=== PATIENT | female | born 1945 | race Caucasian/White ===

== ENCOUNTER 2024-04-28 09:28 | Outpatient (REF) | payer MEDICARE, SELFPAY | END 2024-04-28 09:29 | disposition home or self-care (01) | LOC: HO.HOSX 09:28 | PROVIDERS: Visit Provider Orthopaedic Surgery | DX: M25.562 Pain in left knee (principal); M25.561 Pain in right knee; M17.0 Bilateral primary osteoarthritis of knee | CPT/HCPCS: 20610; 73562; J1010; J2003 ==

== ENCOUNTER 2024-04-28 13:32 | Outpatient (AMB) | payer OTHER, SELFPAY ==
--- NOTE | 2024-04-28 13:51 | MHC.OFFVIS ---
Intake Visit Reasons: Bilateral knee pain Intake Note: Jazmin is a 79 year old female who presents with complaints of progressively worsening bilateral knee pains. She describes her pains as sharp in nature. Her pains have gotten worse over the last year in spite of continued non operative treatments. She has had cortisone injections in the past which gave her fairly good relief. She has done physical therapy exercises which aggravated her pain. She has tried Tylenol and anti-inflammatory medicines which gave her minimal relief. She would like to hold off on total knee replacement surgery for as long as possible. Allergies hydrochlorothiazide [From Zestoretic] Allergy (Intermediate, Verified 04/28/24 14:13) Redness of Skin lisinopril [From Zestoretic] Allergy (Intermediate, Verified 04/28/24 14:13) Redness of Skin warfarin Allergy (Verified 04/28/24 14:13) Rash Medication List - Last Reconciled 04/29/24 by Candido Sanchez MD amitriptyline 25 mg PO BEDTIME clonazepam 0.5 mg PO DAILY diclofenac sodium 1% 4 grams topical QID digoxin 125 mcg PO DAILY diltiazem HCl ER 180 mg PO DAILY fluticasone propionate 250 mcg/actuation 1 inh inhalation BID ibuprofen 200 mg PO Q6H PRN Physical Exam Const Other: Well-nourished well-developed very friendly female awake alert and oriented x3 in no acute distress Extrem Other: Bilateral lower extremity examination shows good capillary refill, no skin lesions noted, normal sensation light touch Bilateral knee examination shows minimal effusions, palpable crepitus with range of motion, pain with range of motion, no instability Office Procedures AMB Joint Injection/Aspiration Joint Injection/Aspiration Primary Site: left knee Prep: site was prepped using aseptic technique Injected: 40 mg of, DepoMedrol and 1% plain lidocaine Procedure: The patient tolerated the procedure well Coding 71334 - Large joint Procedure code (CPT) selection complete AMB Joint Injection/Aspiration Joint Injection/Aspiration Primary Site: right knee Prep: site was prepped using aseptic technique Injected: 40 mg of, DepoMedrol and 1% plain lidocaine Procedure: The patient tolerated the procedure well Coding 72841 - Large joint Procedure code (CPT) selection complete Results Reviewed Results Reviewed: X-rays of the patient's bilateral knee show joint space narrowing, subchondral sclerosis, no acute bony abnormalities Assessment & Plan Assessment & Plan (1) Arthritis of right knee: Code(s): M17.11 - Unilateral primary osteoarthritis, right knee Category: Medical (2) Pain in both knees: Code(s): M25.561 - Pain in right knee; M25.562 - Pain in left knee Plan Ms. Adair presents with bilateral knee pains due to degenerative joint disease. I had a lengthy discussion with the patient regarding the treatment options. The risks and benefits of bilateral knee cortisone injections were discussed at length with the patient. The patient wished to proceed. She tolerated the injections well. She will continue with her home exercise program. She will contact me prior to her follow-up appointment in 3 months should any questions or concerns arise. I spent 22 minutes in reviewing the patient's records and imaging studies, seeing the patient and documenting in the medical record. Orders: Orders AMB Joint Injection/Aspiration 04/28/24 M17.11 - Unilateral primary osteoarthritis, right knee XR knee LT 3V 04/28/24 M25.562 - Pain in left knee XR knee RT 3V 04/28/24 M25.561 - Pain in right knee AMB Joint Injection/Aspiration 04/28/24 M17.12 - Unilateral primary osteoarthritis, left knee Coding Level of Care Code Est Pt Level 3 (07865) Complex EM visit Add On G2211 Diagnoses Arthritis of right knee M17.11 Pain in both knees M25.561; M25.562 CPT Codes Coding - 64075 Large joint: 62995 - Large joint ([id number]) Coding - 92103 Large joint: 85913 - Large joint ([id number])
== END 2024-04-28 14:29 | disposition home or self-care (01) ==
LOC: HO.HOS 13:33
PROVIDERS: Visit Provider Orthopaedic Surgery
DX: M17.0 Bilateral primary osteoarthritis of knee (principal)
CPT/HCPCS: 20610; 99213

== ENCOUNTER 2024-08-31 11:12 | Outpatient (AMB) | payer MEDICARE, SELFPAY ==
--- NOTE | 2024-08-31 11:16 | A.OFFVIS_ITS ---
Vital Signs 08/31/24 11:21 Height 5 ft 3 in Weight 210 lb BMI 37.2 Intake Visit Reasons: Bilateral knee pains and swelling Intake Note: Jazmin is a 79 year old female who presents with complaints of bilateral knee pains and swelling. She describes her pains as sharp in nature. She has tried Tylenol and anti-inflammatory medicines which gave her minimal relief. She w ishes to hold off on total knee replacement surgery for as long as possible. She has had cortisone injections in the past which gave her fairly good relief. She has done physical therapy exercises which aggravated her pain. Allergies hydrochlorothiazide [From Zestoretic] Allergy (Intermediate, Verified 08/31/24 11:16) Redness of Skin lisinopril [From Zestoretic] Allergy (Intermediate, Verified 08/31/24 11:16) Redness of Skin warfarin Allergy (Verified 08/31/24 11:16) Rash Medication List - Last Reconciled 08/31/24 by Candido Sanchez MD amitriptyline 25 mg PO BEDTIME clonazepam 0.5 mg PO DAILY diclofenac sodium 1% 4 grams topical QID digoxin 125 mcg PO DAILY diltiazem HCl ER 180 mg PO DAILY fluticasone propionate 250 mcg/actuation 1 inh inhalation BID ibuprofen 200 mg PO Q6H PRN Physical Exam Vital Signs: BMI result Body Mass Index 37.2 Const Other: Well-nourished well-developed very friendly female awake alert and oriented x3 in no acute distress Extrem Other: Bilateral lower extremity examination shows good capillary refill, no skin lesions noted, normal sensation light touch Bilateral knee examination shows moderate effusions, palpable crepitus with ran ge of motion, pain with range of motion, no instability Office Procedures AMB Joint Injection/Aspiration Joint Injection/Aspiration Primary Site: left knee Prep: site was prepped using aseptic technique Injected: 40 mg of, DepoMedrol and 1% plain lidocaine Procedure: The patient tolerated the procedure well Coding 23505 - Large joint Procedure code (CPT) selection complete AMB Joint Injection/Aspiration Joint Injection/Aspiration Primary Site: right knee Prep: site was prepped using aseptic technique Injected: 40 mg of, DepoMedrol and 1% plain lidocaine Procedure: The patient tolerated the procedure well Coding 58563 - Large joint Procedure code (CPT) selection complete Results Reviewed Results Reviewed: X-rays of the patient's bilateral knees taken previously show joint space narrowing, subchondral sclerosis, no acute bony abnormalities Assessment & Plan Assessment & Plan (1) Arthritis of left knee: Code(s): M17.12 - Unilateral primary osteoarthritis, left knee Category: Medical (2) Arthritis of right knee: Code(s): M17.11 - Unilateral primary osteoarthritis, right knee Category: Medical Plan Ms. Adair presents with bilateral knee pains due to degenerative joint disease. The risks and benefits of bilateral knee cortisone injections were discussed at length with the patient. The patient wished to proceed. She tolerated the injections well. She will continue with her home exercise program. She will contact me prior to her follow-up appointment in 3 months should any questions or concerns arise. I spent 21 minutes in reviewing the patient's records and imaging studies, seeing the patient and documenting in the medical record. Orders: Orders AMB Joint Injection/Aspiration Today M17.12 - Unilateral primary osteoarthritis, left knee AMB Joint Injection/Aspiration Today M17.11 - Unilateral primary osteoarthritis, right knee Coding Level of Care Code Est Pt Level 3 (54572) Complex EM visit Add On G2211 Diagnoses Arthritis of left knee M17.12 Arthritis of right knee M17.11 CPT Codes Coding - 34816 Large joint: 85208 - Large joint ([id number]) Coding - 97244 Large joint: 52202 - Large joint ([id number])
[2024-08-31 11:21] VITALS: BMI 37.2
--- OUTSIDE RECORDS SUMMARY | 2024-08-31 13:54 | XMS_ITS | Clinical Summary ---
Author Organization [employer] [facility] it Address [address] [place] [address] Care Team Providers Care Maxillofacial Pathology Name Role Phone Dany Galloway MD Primary Care Provider [phone] Medications triamterene-hyd roCHLOROthiazid e (MAXZIDE) 75-50 mg per tablet Take 1 tablet by mouth 1 (one) time each day. 7 Active apixaban (ELIQUIS) 5 mg tablet Take 1 tablet (5 mg total) by mouth 2 (two) times a day. 180 tablet 1 4 Active digoxin (LANOXIN) 125 mcg (0.125 mg) tablet Take 1 tablet (125 mcg total) by mouth 1 (one) time each day. 90 tablet 1 5 Active dilTIAZem CD (CARDIZEM CD) 180 mg 24 hr capsule Take 2 capsules (360 mg total) by mouth 1 (one) time each day. 180 capsule 1 5 Active digoxin (LANOXIN) 125 mcg (0.125 mg) tablet Take 1 tablet (125 mcg total) by mouth 1 (one) time each day. 7 08/02/19 25 Discontinu ed(Reorder ) dilTIAZem CD (CARDIZEM CD) 180 mg 24 hr capsule Take 2 capsules (360 mg total) by mouth 1 (one) time each day. 08/02/19 25 Discontinu ed(Reorder ) Encounters Date Type Department Care Team Description 08/02/2024 Telephone [facility] [address] [place] [address] Rafa Mcgrath MD Med Refill from Last 3 Months Family History Medical History Relation Name Comments Other: pacemaker Father Relation Name Status Comments Father Social History Tobacco Use Types Packs/Day Years Used Date Smoking Tobacco: Never Smokeless Tobacco: Never Alcohol Use Standard Drinks/Week Comments Yes 0 (1 standard drink = 0.6 oz pur e alcohol) Comments Unknown Sex and Gender Information Value Date Recorded Sex Assigned at Not on file Legal Sex Female 10:34 AM EST Gender Identity Not on file Sexual Orientation Not on file Obstetrics History Last Filed Vital Signs Vital Sign Reading Time Taken Comments Blood Pressure 140/85 03/24/2024 11:13 AM EDT Si tting L Arm Pulse 75 01/02/2024 1:36 PM EDT Temperature - - Respiratory Rate - - Oxygen Saturation - - Inhaled Oxygen Concentration - - Weight 107 kg (235 lb) 03/24/2024 11:13 AM EDT Height 160 cm (5' 3 ) 03/24/2024 11:13 AM EDT Body Mass Index 41.63 03/24/2024 11:13 AM EDT Plan of Treatment Health Maintenance Due Date Last Done Comments DTaP,Tdap,and Td Vaccines (1 - Tdap) 1964 Pneumococcal Vaccine: 50+ Years (1 of 2 - PCV) 1965 Zoster Vaccines (1 of 2) 02/29/1996 RSV Immunization Patients 60 + Years Old (1 - 1-dose 75+ series) 2021 Cholesterol Screening (Lipid Panel) 05/30/2022 Depression Screening 05/30/2022 Falls Risk Assessment 05/30/2022 Hepatitis C Screening 05/30/2022 Osteoporosis Screening (Bone Density Screening) 05/30/2022 Social Influencers of Health Screening 05/30/2022 COVID-19 Vaccine ( - 2023-2 5 season) 2024 Influenza Vaccine (#1) 2024 3, 04/05/2022, 03/21/2021 Hypertension/CHF/CAD Annual BMP Blood Test 04/28/2024 HIB Vaccines Aged Out No longer eligi ble based on patient's age to complete this topic HPV Vaccines Aged Out No longer eligi ble based on patient's age to complete this topic Hepatitis A Vaccines Aged Out No long er eligible based on patient's age to complete this topic Hepatitis B Vaccines Aged Out No long er eligible based on patient's age to complete this topic IPV Vaccines Aged Out No longer eligi ble based on patient's age to complete this topic MMR Vaccines Aged Out No longer eligi ble based on patient's age to complete this topic Meningococcal ACWY Vaccine Aged Out N o longer eligible based on patient's age to complete this topic Meningococcal B Vacine Aged Out No lo nger eligible based on patient's age to complete this topic RSV Immunization Patients Under 20 months Aged Out No longer eligible b ased on patient's age to complete this topic Varicella Vaccines Aged Out No longer eligible based on patient's age to complete this topic Care Teams Maxillofacial Pathology Relationship Specialty Start Date End Date Dany Galloway MD [address] [place] [id number] PCP - General Oil Seal Assembler 04/04/17
--- OUTSIDE RECORDS SUMMARY | 2024-08-31 13:54 | XMS_ITS | Data Portability ---
Author Organization [place] [facility] Rodas AONE [place] Address [address] [place] [address] Care Team Providers Care Field Service Specialist Name Role Phone ALAN ZARAGOZA Primary Care Provider Assessment Encounter Date Assessment Date Assessment LastModified by Organization Details LastModified Time 11/20/2022 11/20/2022 77-year-old fema le with severe arthritis/joint effusion of both knees who states she is not interested in knee replacement surgery. She gets good relief with aspiration followed by cortisone injections for which she opted for at today's visit. After verbal consent was granted by the patient. The procedures were carried out. The patient tolerated the procedures well. Aftercare instructions were discussed in detail. Regarding her tube plus pitting edema on her mid shins. She states supposed to take my water pill however I do not . She also does admit she is supposed to be on anticoagulation for atrial fibrillation however she states she discontinued this on her own. We did discuss the risks of heart attack stroke and . She should follow-up with her primary care making them aware of her noncompliance of her medications. Follow-up visit regarding her knees in 3 months. She was discharged in stable condition. Indirect care and treatment in conjunction with Dr. Mccray Additional treatment plan discussed with the patient in detail included the following; - Provider focused nonsteroidal anti-inflammatory regimen (discussed were the pros, cons, benefits and risks as well as any black box warnings) in patients over 60 years old they should be very cautious in taking these medications due to potential decreased kidney function and or elevated blood pressure. - Analgesic pain medication for pain suppression (discussed were the pros, cons, benefits and risks as well as any black box warnings) - The use of topical pain relieving medication were discussed - The use of ice to decrease inflammation and pain - The use of assistive ambulatory devices for ambulation and fall prevention - Formal specific guided physical therapy program I reviewed my findings at length with the patient today. ? ? ?We discussed the nature and etiology of this problem along with current treatment options. We discussed the expected course and outcomes and what to expect. We also discussed risks and benefits. ? ? ? All of their questions were answered today, and there was exhibited understanding and comprehension of all that was discussed. Time Spent: 10 minutes were spent reviewing previous imaging and charting. ? ? ?15 minutes were spent obtaining patient history. ? ? ?5 minutes were spent on physical exam. ? ? ?15? ? ?minutes were spent explaining diagnosis and assessment. Today's documentation was made using voice recognition software. This note may contain grammatical errors secondary to the software. Not available 11/21/2022 07:47:32 02/04/2023 02/04/2023 77-year-old fema le with severe arthritis/joint effusion of both knees who states she is not interested in knee replacement surgery. She gets good relief with aspiration followed by cortisone injections for which she opted for at today's visit. After verbal consent was granted by the patient. The procedures were carried out. The patient tolerated the procedures well. Aftercare instructions were discussed in detail. Follow-up visit regarding her knees in 3 months. She was discharged in stable condition. Indirect care and treatment in conjunction with Dr. Mccray Additional treatment plan discussed with the patient in detail included the following; - Provider focused nonsteroidal anti-inflammatory regimen (discussed were the pros, cons, benefits and risks as well as any black box warnings) in patients over 60 years old they should be very cautious in taking these medications due to potential decreased kidney function and or elevated blood pressure. - Analgesic pain medication for pain suppression (discussed were the pros, cons, benefits and risks as well as any black box warnings) - The use of topical pain relieving medication were discussed - The use of ice to decrease inflammation and pain - The use of assistive ambulatory devices for ambulation and fall prevention - Formal specific guided physical therapy program I reviewed my findings at length with the patient today. ? ? ?We discussed the nature and etiology of this problem along with current treatment options. We discussed the expected course and outcomes and what to expect. We also discussed risks and benefits. ? ? ? All of their questions were answered today, and there was exhibited understanding and comprehension of all that was discussed. Time Spent: 10 minutes were spent reviewing previous imaging and charting. ? ? ?15 minutes were spent obtaining patient history. ? ? ?5 minutes were spent on physical exam. ? ? ?15? ? ?minutes were spent explaining diagnosis and assessment. Today's documentation was made using voice recognition software. This note may contain grammatical errors secondary to the software. Not available 02/04/2023 13:29:19 07/03/2023 07/03/2023 78-year-old fema le with severe arthritis/joint effusion of both knees who states she is not interested in knee replacement surgery. She gets good relief with aspiration followed by cortisone injections for which she opted for at today's visit. After verbal consent was granted by the patient. The procedures were carried out. The patient tolerated the procedures well. Aftercare instructions were discussed in detail. Follow-up visit 3 months time for follow-up exam. Should her symptoms not improve or worsen she should contact my office immediately. She agrees with this plan. Patient was seen and evaluated by Jose Cat PA-C in indirect conjuction with Documenting Provider: Asaf Mccray MD . He/She agrees with history, physical examination, tests/diagnostic imaging, and treatment plan. Additional treatment plan discussed with the patient (only initiated if in boldface font) otherwise not applicable. Treatment may include the following; - Provider focused nonsteroidal anti-inflammatory regimen (discussed were the pros, cons, benefits and risks as well as any black box warnings) in patients over 60 years old they should be very cautious in taking these medications due to potential decreased kidney function and or elevated blood pressure. - Analgesic pain medication for pain suppression (discussed were the pros, cons, benefits and risks as well as any black box warnings) - The use of topical pain relieving medication were discussed - The use of ice to decrease inflammation and pain - The use of assistive ambulatory devices for ambulation and fall prevention - Formal specific guided physical therapy program I reviewed my findings at length with the patient today. ? ? ?We discussed the nature and etiology of this problem along with current treatment options. We discussed the expected course and outcomes and what to expect. We also discussed risks and benefits. ? ? ? All of their questions were answered today, and there was exhibited understanding and comprehension of all that was discussed. Time Spent: 10 minutes were spent reviewing previous imaging and charting. ? ? ?10 minutes were spent obtaining patient history. ? ? ?5 minutes were spent on physical exam. ? ? ?5? ? ?minutes were spent explaining diagnosis and assessment. Today's documentation was made using voice recognition software. This note may contain grammatical errors secondary to the software. Not available 07/04/2023 07:56:07 10/01/2023 10/01/2023 78-year-old fema le with severe arthritis/joint effusion of both knees who states she is not interested in knee replacement surgery. She gets good relief with aspiration followed by cortisone injections for which she opted for at today's visit. After verbal consent was granted by the patient. The procedures were carried out. The patient tolerated the procedures well. Aftercare instructions were discussed in detail. Follow-up visit 3 months time for follow-up exam. Should her symptoms not improve or worsen she should contact my office immediately. She agrees with this plan. Patient was seen and evaluated by Jose Cat PA-C in indirect conjuction with Documenting Provider: Asaf Mccray MD . He/She agrees with history, physical examination, tests/diagnostic imaging, and treatment plan. Additional treatment plan discussed with the patient (only initiated if in boldface font) otherwise not applicable. Treatment may include the following; - Provider focused nonsteroidal anti-inflammatory regimen (discussed were the pros, cons, benefits and risks as well as any black box warnings) in patients over 60 years old they should be very cautious in taking these medications due to potential decreased kidney function and or elevated blood pressure. - Analgesic pain medication for pain suppression (discussed were the pros, cons, benefits and risks as well as any black box warnings) - The use of topical pain relieving medication were discussed - The use of ice to decrease inflammation and pain - The use of assistive ambulatory devices for ambulation and fall prevention - Formal specific guided physical therapy program I reviewed my findings at length with the patient today. ? ? ?We discussed the nature and etiology of this problem along with current treatment options. We discussed the expected course and outcomes and what to expect. We also discussed risks and benefits. ? ? ? All of their questions were answered today, and there was exhibited understanding and comprehension of all that was discussed. Time Spent: 10 minutes were spent reviewing previous imaging and charting. ? ? ?10 minutes were spent obtaining patient history. ? ? ?5 minutes were spent on physical exam. ? ? ?5? ? ?minutes were spent explaining diagnosis and assessment. Today's documentation was made using voice recognition software. This note may contain grammatical errors secondary to the software. Not available 10/01/2023 07:41:11 01/08/2024 01/08/2024 78-year-old fema le with bilateral knee pain. History, examination and x-rays are consistent with advanced [id number] osteoarthritis. After discussion regarding treatment options she wishes to proceed with cortisone injections. See the attached procedure note. Follow-up if she fails to get relief with cortisone or when the cortisone effects wane. This patient was seen and evaluated by Joes Doran MS, PA-C in indirect conjunction with documenting/superv ising provider Asaf Mccray MD. He agrees with history, physical examination, tests/diagnostic imaging, and treatment plan. This document was generated using voice recognition software. As a result, there may be unintended spelling, grammatical and/or textual errors. Not available 01/08/2024 11:49:17 Plan of Treatment Reminders Order Date Submit Date Provider Last Modified By Organization Details Last Modified Time Details Appointments None recorded. Lab None recorded. Referral None recorded. Procedures None recorded. Surgeries None recorded. Imaging XR, knee, 1 or 2 view - Left Knee Pain 2022 023 [email or web address], [address], [address], [place], [address], 3 13:44:00 XR, knee, 1 or 2 view - Right Knee Pain 2022 023 [email or web address] 2 [facility], [address], [place], [address], 3 13:44:00 XR, knee, weightbeari ng - Bilateral Knee Pain 2022 023 [email or web address] 2 [facility], [address], [place], [address], 3 13:43:59 Medication Orders Marcaine (PF) 0.5 % (5 mg/mL) injection solution [address] [facility], [address] [place], [address], 4 12:12:43 lidocaine (PF) 100 mg/5 mL (2 %) injection syringe [address] [facility] [address], [address] [place], [address], 4 12:12:43 triamcinolo ne acetonide 40 mg/mL suspension for injection [address] [facility], [address] [place], [address], 4 12:12:43 Marcaine (PF) 0.5 % (5 mg/mL) injection solution [address] [facility] [address], [address] [place], [address], 4 12:12:43 lidocaine (PF) 100 mg/5 mL (2 %) injection syringe [address] [facility], [address] [place], [address], 4 12:12:43 triamcinolo ne acetonide 40 mg/mL suspension for injection [address] [facility], [address] [place], [address], 4 12:12:43 Kenalog 40 mg/mL suspension for injection [email or web address] [place] [address] [facility] [address], [address] [place], [address], 4 12:54:13 lidocaine (PF) 100 mg/5 mL (2 %) injection syringe [address] [facility], [address] [place] [address], [address], 4 12:54:13 Kenalog 40 mg/mL suspension for injection [address] [facility], [address] [place] [address], [address], 4 12:54:13 lidocaine (PF) 100 mg/5 mL (2 %) injection syringe [address] [facility], [address] [place] [address], [address], 4 12:54:13 Kenalog 40 mg/mL suspension for injection [address] [facility], [address] [place] [address], [address], 4 07:37:38 lidocaine (PF) 100 mg/5 mL (2 %) injection syringe [address] [facility], [address] [place], [address], 4 07:37:38 Kenalog 40 mg/mL suspension for injection [address] [facility], [address] [place], [address], 4 07:37:38 lidocaine (PF) 100 mg/5 mL (2 %) injection syringe [address] [facility], [address] [place] [address], [address], 4 07:37:38 Kenalog 40 mg/mL suspension for injection [address] [facility], [address] [place] [address], [address], 4 13:44:41 lidocaine (PF) 10 mg/mL (1 %) injection solution [address] [facility], [address] [place] [address], [address], 4 13:44:44 Kenalog 40 mg/mL suspension for injection [address] [facility], [address] [place] [address], [address], 4 13:44:41 lidocaine (PF) 10 mg/mL (1 %) injection solution [address] [facility], [address] [place] [address], [address], 4 13:44:44 Kenalog 40 mg/mL suspension for injection [address] [facility], [address] [place] [address], [address], 4 13:44:41 lidocaine (PF) 10 mg/mL (1 %) injection solution [address] [facility], [address] [place] [address], [address], 4 13:44:44 Kenalog 40 mg/mL suspension for injection [address] [facility], [address] [place] [address], [address], 4 13:44:41 lidocaine (PF) 10 mg/mL (1 %) injection solution [address] [facility], [address] [place], [address], 4 13:44:44 Patient TargetsNo targets recorded. Patient Instructions Encounter Date Encounter Id Patient Instructions Last Modified By Organization Details Last Modified Time 11/20/2022 [id number] You have been provided with a cortisone injection in order to reduce the pain and inflammation that you are experiencing. The injection consists of two medications. Cortisone (an anti-inflammatory that will take 48-72 hours to take effect) and Lidocaine (a numbing agent that will last 2-3 hours). Please note that not everyone will have a lasting response following the injection. PATIENT INSTRUCTIONS Once the Lidocaine wears off, you may have an increase in your pain. I recommend icing the affected area for 20 minutes 3-4 times per day. It is recommended that you refrain from any high level activities using the joint or limb that was injected for approximately 24-48 hours. Normal day-to-day activities are generally not a problem. POSSIBLE SIDE EFFECTS Individuals with dark complexions may experience some skin discoloration locally at the site of the injection. There is the possibility of an increase in discomfort within 48 hours following the injection. This is called a ? f lare? . To help minimize the chances of this, please see the post-injection instructions above. There is a less than 1% chance of an infection. If you notice any signs of infection (redness, warmth, drainage, fever greater than 100 degrees) please call our office or contact us through the portal [facility]. Not available 11/21/2022 07:45:31 X-rays of both knees reveal severe tricompartment grade 4 arthritis with large osteophyte formation throughout most notably on lateral view of the patellofemoral joint space, notable subchondral sclerosis without acute bony abnormality. Not available 11/21/2022 07:40:17 02/04/2023 [id number] You have been provided with a cortisone injection in order to reduce the pain and inflammation that you are experiencing. The injection consists of two medications. Cortisone (an anti-inflammatory that will take 48-72 hours to take effect) and Lidocaine (a numbing agent that will last 2-3 hours). Please note that not everyone will have a lasting response following the injection. PATIENT INSTRUCTIONS Once the Lidocaine wears off, you may have an increase in your pain. I recommend icing the affected area for 20 minutes 3-4 times per day. It is recommended that you refrain from any high level activities using the joint or limb that was injected for approximately 24-48 hours. Normal day-to-day activities are generally not a problem. POSSIBLE SIDE EFFECTS Individuals with dark complexions may experience some skin discoloration locally at the site of the injection. There is the possibility of an increase in discomfort within 48 hours following the injection. This is called a ? f lare? . To help minimize the chances of this, please see the post-injection instructions above. There is a less than 1% chance of an infection. If you notice any signs of infection (redness, warmth, drainage, fever greater than 100 degrees) please call our office or contact us through the portal [employer]. Not available 02/04/2023 13:27:36 07/03/2023 [id number] You have been provided with a cortisone injection in order to reduce the pain and inflammation that you are experiencing. The injection consists of two medications. Cortisone (an anti-inflammatory that will take 48-72 hours to take effect) and Lidocaine (a numbing agent that will last 2-3 hours). Please note that not everyone will have a lasting response following the injection. PATIENT INSTRUCTIONS Once the Lidocaine wears off, you may have an increase in your pain. I recommend icing the affected area for 20 minutes 3-4 times per day. It is recommended that you refrain from any high level activities using the joint or limb that was injected for approximately 24-48 hours. Normal day-to-day activities are generally not a problem. POSSIBLE SIDE EFFECTS Individuals with dark complexions may experience some skin discoloration locally at the site of the injection. There is the possibility of an increase in discomfort within 48 hours following the injection. This is called a ? f lare? . To help minimize the chances of this, please see the post-injection instructions above. There is a less than 1% chance of an infection. If you notice any signs of infection (redness, warmth, drainage, fever greater than 100 degrees) please call our office or contact us through the portal [facility]. Not available 07/03/2023 13:21:39 10/01/2023 [id number] You have been provided with a cortisone injection in order to reduce the pain and inflammation that you are experiencing. The injection consists of two medications. Cortisone (an anti-inflammatory that will take 48-72 hours to take effect) and Lidocaine (a numbing agent that will last 2-3 hours). Please note that not everyone will have a lasting response following the injection. PATIENT INSTRUCTIONS Once the Lidocaine wears off, you may have an increase in your pain. I recommend icing the affected area for 20 minutes 3-4 times per day. It is recommended that you refrain from any high level activities using the joint or limb that was injected for approximately 24-48 hours. Normal day-to-day activities are generally not a problem. POSSIBLE SIDE EFFECTS Individuals with dark complexions may experience some skin discoloration locally at the site of the injection. There is the possibility of an increase in discomfort within 48 hours following the injection. This is called a ? f lare? . To help minimize the chances of this, please see the post-injection instructions above. There is a less than 1% chance of an infection. If you notice any signs of infection (redness, warmth, drainage, fever greater than 100 degrees) please call our office or contact us through the portal [facility]. Not available 10/01/2023 07:40:11 01/08/2024 [id number] She refuses repe at x-rays today. Prior x-rays are reviewed and they show advanced osteoarthritis with complete collapse of the medial joint compartments with [id number] articulation. Significant subchondral sclerosis, sizable marginal osteophytosis, and early remodeling. Not available 01/08/2024 11:48:15 Reason for Referral None Reported. Problems Name Problem SNOMED Code Status Onset Date Resolution Date Notes Provider Name and Address Organization Details Recorded Time Pain of bilateral knee joints 1887042390126 04 Active 2022 JOSE CAT PA-C [address] [facility],[address], [place], [address], [place] [facility] 3 13:27:41 Effusion of joint of right knee 6442338809443 04 Active 2022 JOSE CAT PA-C [address], [place], [address], [place] [facility] 3 07:44:58 Osteoarthri tis of right knee joint 7763464015282 00 Active 2022 JOSE CAT PA-C [address], [place], [address], [place] [facility] 3 07:45:04 Effusion of joint of left knee 2126225869459 05 Active 2022 JOSE CAT PA-C [address], [place], [address], [place] [facility] 3 07:45:09 Osteoarthri tis of left knee joint 4188033503326 09 Active 2022 JOSE CAT PA-C [address], [facility] [place], [address], [place] [facility] 3 07:45:14 Problem Notes None recorded. Procedures Surgical History Date Name Laterality Status Provider Name and Address Organization Details Recorded Time 4 MJG Knee injection w/US completed JOSE DORAN PA-C [address], [place], [address], [place] [facility] 01/08/2024 11:49:11 4 Knee Joint/Bursa Asp & Inj completed JOSE CAT PA-C [address], [place], [address], [place] [facility] 10/01/2023 07:40:10 4 Knee Joint/Bursa Asp & Inj completed JOSE CAT PA-C [address], [place], [address], [place] [facility] 07/03/2023 13:21:46 3 Knee Joint/Bursa Asp & Inj completed JOSE CAT PA-C [address], [place], [address], [place] [facility] 02/04/2023 13:27:36 3 Knee Joint/Bursa Asp & Inj completed JOSE CAT PA-C [address] [facility] [address], [place], [address], [place] [facility] 11/21/2022 07:43:08 procedure on shoulder completed Britta Acevedo [facility], [facility] 11/20/2022 13:11:05 Imaging Results None recorded. Procedure Notes None recorded. Medical Equipment None Reported. Allergies Allergen ID Allergen Name Allergen Category Reaction Reaction Severity Criticality Documentation Date Start Date Code Code System Note Provider Name and Address Organization Details Recorded Time 40119 house dust allergeni c extract environme nt,medica tion Not available Not available Not available 10/01/2023 43455 9 RxNorm Brittajohann Acevedo [facility], [facility], P 4 10:42:22 23165 mold extract environme nt Not available Not available Not available 10/01/2023 19972 8 RxNorm Brittajohann Acevedo [facility], [facility], [facility] 4 10:42:26 4647 lisinopri l medicatio n Not available Not available Not available 11/20/2022 [id number] RxNorm Britta Acevedo [place], [facility] [facility] 13:09:48 [id number] hydrochlo rothiazid e / lisinopri l medicatio n Not available Not available Not available 11/20/2022 10995 [id number] RxNorm Brittajohann Acevedo null, [facility] 13:09:56 Medications Name Sig Start Date Stop Date Status Note LastModified by Organization Details LastModified Time amoxicillin 500 mg capsule active Not Available Not Available Not Available latanoprost 0.005 % eye drops 07/03 completed Not Available Not Available Not Available fluticasone 250 mcg-salmete rol 50 mcg/dose blistr powdr for inhalation active Not Available Not Available N ot Available doxycycline hyclate 100 mg capsule TAKE 1 CAPSULE BY MOUTH TWICE A DAY active Not Available Not Available No t Available diltiazem CD 180 mg capsule,ext ended release 24 hr TAKE 2 CAPSULES BY MOUTH EVERY DAY active Not Available Not Available No t Available clonazepam 0.5 mg tablet active Not Available Not Available Not Available triamcinolo ne acetonide 0.1 % topical cream 07/03 completed Not Available Not Available Not Available ketorolac 0.5 % eye drops 09/30 completed Not Available Not Available Not Available hydrocortis one 2.5 % topical cream with perineal applicator APPLY RECTALLY TWICE A DAY 07/03 completed Not Available Not Available Not Available amitriptyli ne 25 mg tablet active Not Available Not Available Not Available prednisolon e acetate 1 % eye drops,suspe nsion INSTILL ONE DROP 4 TIMES PER DAY FOR 7 DAYS DIRECTED. 07/03 completed Not Available Not Available Not Available triamcinolo ne acetonide 0.025 % topical cream 07/03 completed Not Available Not Available Not Available triamcinolo ne acetonide 40 mg/mL suspension for injection Take 40 mg by injection route. 2023 active Not Available Not Available Not Avai lable nystatin 100,000 unit/gram topical cream 09/30 completed Not Available Not Available Not Available digoxin 125 mcg (0.125 mg) tablet active Not Available Not Available N ot Available triamterene 75 mg-hydrochl orothiazide 50 mg tablet Take 0.5 tablets every day by oral route. 07/03 completed Not Available Not Available Not Available methylpredn isolone 4 mg tablets in a dose pack TAKE DIRECTED ON PACKAGING FOR 6 DAYS 09/30 completed Not Available Not Available Not Available Marcaine (PF) 0.5 % (5 mg/mL) injection solution Take 4 mL by injection route. 2023 active Not Available Not Available Not Avai lable Refresh active Not Available Not Avail able Not Available lidocaine (PF) 10 mg/mL (1 %) injection solution Take 2 mL by injection route. 07/03 completed Not Available Not Available Not Available diclofenac 1 % topical gel active Not Available Not Available Not Available lidocaine (PF) 100 mg/5 mL (2 %) injection syringe Take 4 mL by injection route. 2023 active Not Available Not Available Not Avai lable Vitals Date Recorded Body height Provider Name an d Address Organization Details Last Updated DateTime 07/03/2023 160.02 cm [facility] [place] [facility] 07/03/2023 13:44:01 Date Recorded Body weight Body mass index (BMI) Body height Provider Name and Address Organization Details Last Updated DateTime 11/20/2022 42603.47 g 35.4 kg/m2 160.02 cm Britta Acevedo [facility] 11/20/2022 13:10:30 Date Recorded Body height Provider Name an d Address Organization Details Last Updated DateTime 02/04/2023 160.02 cm [facility] [place] [facility] 02/04/2023 13:14:35 Social History Question Answer Notes LastModified by Organizat ion Details LastModified Time Tobacco Smoking Status Never Smoker Britta Acevedo [place] - [facility] 11/20/2022 13:10:47 What Is Your Level Of Alcohol Consumption? Occasional Information not available 11/20/2022 How Many Times Per Week Do You Consume Alcohol? 1-2 Times Per Week Information not available 11/20/2022 Do You Use Any Illicit Or Recreational Drugs? No Information not available 11/20/2022 Sex: Unknown Functional Status None recorded. Mental Status None recorded. Family History Relationship Description Onset Age of this Age Resolved Age Notes LastModified by Organization Details LastModified Time Father Diabetes mellitus Not available 2022 13:11:17 Brother Diabetes mellitus Not available 2022 13:11:17 Medical History Condition Response Asthma Y Gynecological HistoryNo gynecological history recorded. Obstetrics History GPAL:G 0 P 0 0 0 0 Past Encounters Encounter ID Performer Location Encounter Start Date Encounter Closed Date Diagnosis/Indication Diagnosis SNOMED-CT Code Diagnosis ICD10 Code Diagnosis Note [id number] MD IRWIN Paulson [facility] [address] [facility] [address] [place] [address] 11/20/2022 12:55:18 11/20/2022 13:43:59 Pain of bilateral knee joints 8654298973 71678 M25.562 M25.561 Effusion o f joint of right knee 7775936524 05488 M25.461 Osteoarthr itis of right knee joint 1133591788 20503 M17.11 Effusion o f joint of left knee 6625491055 98246 M25.462 Osteoarthr itis of left knee joint 0674746128 90490 M17.12 Noncomplia nce with medication regimen 252998365 Z91.148 [id number] MD IRWIN Paulson [address] [facility] [address] [place] [address] 02/04/2023 12:47:34 02/04/2023 13:27:50 Pain of bilateral knee joints 9535080645 08897 M25.562 M25.561 Effusion o f joint of right knee 5478356992 01730 M25.461 Osteoarthr itis of right knee joint 5852015879 M17.11 Effusion o f joint of left knee 9401403909 59031 M25.462 Osteoarthr itis of left knee joint 4235007250 86252 M17.12 Noncomplia nce with medication regimen 134864731 Z91.148 [id number] MD IRWIN Paulson [address] [facility] [address] [place] [address] 07/03/2023 13:18:33 07/03/2023 14:06:16 Pain of bilateral knee joints 4300827452 50588 M25.562 M25.561 Effusion o f joint of right knee 1062647907 86801 M25.461 Osteoarthr itis of right knee joint 9463341571 M17.11 Effusion o f joint of left knee 7617157651 69816 M25.462 Osteoarthr itis of left knee joint 4308432018 61648 M17.12 [id number] MD IRWIN Paulson [address] [facility] [address] [place] [address] 10/01/2023 10:19:09 10/01/2023 10:56:41 Effusion of joint of right knee 1949821010 34630 M25.461 Osteoarthr itis of right knee joint 2795894026 M17.11 Effusion o f joint of left knee 8683888689 11871 M25.462 Osteoarthr itis of left knee joint 1113540392 61741 M17.12 [id number] MD IRWIN Paulson [address] [place] [address] 01/08/2024 11:17:11 01/08/2024 12:22:59 Osteoarthritis of left knee joint 5623971076 91301 M17.12 Osteoarthr itis of right knee joint 6339650029 47615 M17.11 Health Concerns Section Related Observation LastModified by Organization Detai ls LastModified Time None Recorded Concern Status LastModified by Organization Details LastModified Time None Recorded Advance Directives Directive None Recorded Payers Encounter Date Sequence Insurance Name Policy Number Policy Valero Covered Member ID Valero Member ID Guarantor Name 11/20/2022 2 [facility] aJzmin Adair [id number] Jazmin Adair 11/20/2022 2 [place]: [facility] Jazmin Adair [id number] Jazmin Adair 02/04/2023 2 [facility] Jazmin Adair [id number] Jazmin Adair 02/04/2023 2 [place] [facility] [employer] Jazmin Adair [id number] Jazmin Adair 07/03/2023 1 [employer] [place] [employer] [place] ADV[employer]AGE [facility] (MEDICARE REPLACEMENT HMO) [id number] 1 Jazmin Adair [id number] Jazmin Adair 10/01/2023 1 [employer] [place] [employer] (MEDICARE REPLACEMENT HMO) [id number] 1 Jazmin Adair [id number] Jazmin Adair 01/08/2024 1 [employer] [place] ADVANTAGE [facility] (MEDICARE REPLACEMENT HMO) [id number] 1 Jazmin Adair [id number] Jazmin Adair Notes Date Note Type Note Provider Name and Address Organization Details Recorded Time 11/20/2022 text/html This is a 77-year-old female last seen by Dr. Sanchez on 07/31/2022 for which she had aspiration of both knees followed by cortisone injection. Patient states this gives her satisfactory relief. She states return of her bilateral knee symptoms. Return pain medial nature that is worse with walking. She states she is not interested in knee replacement surgery. X-rays of both knees reveal severe tricompartment grade 4 arthritis with large osteophyte formation throughout most notably on lateral view of the patellofemoral joint space, notable subchondral sclerosis without acute bony abnormality. JOSE CAT PA-C [address], [place], [address], [place] [facility] 11/21/2022 07:48:27 02/04/2023 text/html This is a 77-year-old female last seen 11/20/2022 for which she had aspiration of both knees followed by cortisone injection. Patient states this gives her satisfactory relief. She has return of symptoms and swelling and stiffness along with medial knee pain without the presence of fevers or chills or warmth overlying the knee joints. She states return of her bilateral knee symptoms. Return pain medial nature that is worse with walking. She states she is not interested in knee replacement surgery. JOSE CAT PA-C [address], [place], [address], [place] [facility] 02/04/2023 13:30:37 07/03/2023 text/html This is a 78-year-old female last seen 02/04/2023 for which she had aspiration of both knees followed by cortisone injection. Patient states this gives her satisfactory relief. She has return of symptoms and swelling and stiffness along with medial knee pain without the presence of fevers or chills or warmth overlying the knee joints. She states return of her bilateral knee symptoms. Return pain medial nature that is worse with walking. She states she is not interested in knee replacement surgery. JOSE CAT PA-C [address], [place], [address], [place] [facility] 07/04/2023 07:57:47 10/01/2023 text/html This is a 78-year-old female last seen last seen on 07/03/2023 for which she had aspiration of both knees followed by cortisone injection. She states return of her bilateral knee symptoms. Return pain medial nature that is worse with walking. She states she is not interested in knee replacement surgery. JOSE CAT PA-C [address] [facility] [address], [place], [address], [place] [facility] 10/01/2023 12:55:36 01/08/2024 text/html 78-year-old fema alec presents with bilateral knee pain. She specifically request cortisone injection to the knees. She is known to have advanced osteoarthritis. She reports that prior cortisone injections have given her at least 3 months worth of pain relief. She understands that she could benefit from joint arthroplasty though she declines that intervention at this time. Otherwise, there is been no substantial change in character quality or location of her symptoms. JOSE DORAN PA-C [address] [facility] [address], [place], [address], [place] [facility] 01/08/2024 12:06:49 OBGyn Episode No OBEpisode recorded.
--- OUTSIDE RECORDS SUMMARY | 2024-08-31 13:54 | XMS_ITS | Encounter Summary ---
Author Organization [facility] Address [address] [place] [address] Care Team Providers Care Vocational Services Specialist Name Role Phone Dany Galloway MD Primary Care Provider [phone] Reason for Visit * Reason Onset Date Comments Med Refill 08/02/2024 Encounter Details Date Type Department Care Team (Late st Contact Info) Description 08/02/2024 Telephone [facility] [address] [facility] [address] [place] [id number] Rafa Mcgrath MD 300 [facility] [address] [place], [place] [id number] Med Refill Social History Tobacco Use Types Packs/Day Years [...] on file documented as of this encounter Ordered Prescriptions Prescription Sig Dispense Quantity Refills Last Filled Start Date End Date dilTIAZem CD (CARDIZEM CD) 180 mg 24 hr capsule Take 2 capsules (360 mg total) by mouth 1 (one) time each day. 180 capsule 1 08/02/2024 digoxin (LANOXIN) 125 mcg (0.125 mg) tablet Take 1 tablet (125 mcg total) by mouth 1 (one) time each day. 90 tablet 1 08/02/2024 documented in this encounter Progress Notes * Hanh Singh MA - 08/02/2024 2:59 PM EST Last [facility] visit Dr Mcgrath Rx's renewed. Labs 2023 * Thalia Nettles - 08/02/2024 1:07 PM EST The patient called requesting a refill for diltiazem 180 mg, 2 capsules daily, and Digoxin 125 mcg,1 tablet daily, 90 day supply of both, Please send to the [facility] pharmacy on [address] documented in this encounter Plan of Treatment Not on file documented as of this encounter Visit Diagnoses Not on filedocumented in this encounter Discontinued Medications Medication Sig Discontinue Reason Start Date End Da te digoxin (LANOXIN) 125 mcg (0.125 mg) tablet Take 1 tablet (125 mcg total) by mouth 1 (one) time each day. Reorder 03/31/2017 08/02/2024 dilTIAZem CD (CARDIZEM CD) 180 mg 24 hr capsule Take 2 capsules (360 mg total) by mouth 1 (one) time each day. Reorder 08/02/2024 documented as of this encounter Care Teams Vocational Services Specialist Relationship Specialty Start Date End Date Dany Galloway MD [address] [place] [address] PCP - General Social Work Lecturer 04/04/17 documented as of this encounter
--- OUTSIDE RECORDS SUMMARY | 2024-08-31 13:54 | XMS_ITS | Clinical Summary ---
Author Organization [facility] Address [address] [id number] Care Team Providers Care Manager Technical Training Name Role Phone Dany Segal MD Primary Care Provider [phone] Allergies Active Allergy Reactions Criticality Noted Date Comments Hydrochlorothiazide 03/12/2022 Lisinopril 05/13/2017 Warfarin 04/23/2019 Medications Medication Sig Dispensed Refills Start Date End Date Status albuterol (PROVENTIL HFA;VENTOLIN HFA) 108 (90 BASE) MCG/ACT inhaler Inhale 2 puffs into the lungs. 0 Active amitriptyline (ELAVIL) tablet 25 mg Take 25 mg by mouth. 0 Active atorvastatin (LIPITOR) tablet 10 mg Take 10 mg by mouth. 0 Active clonazePAM (KLONOPIN) 0.5 MG tablet Take 0.5 mg by mouth. 0 Active digoxin (LANOXIN) 125 MCG tablet Take 125 mcg by mouth. 0 Active diltiazem (CARDIZEM CD) 300 MG 24 hr capsule Take 300 mg by mouth. 0 Active docusate sodium (COLACE) 100 MG capsule Take 100 mg by mouth. 0 03/21/2016 Active HYDROcodone-acetamino phen (NORCO) 5-325 MG per tablet Take 1-2 tablets by mouth. 0 03/21/2016 Active ondansetron (ZOFRAN) 4 MG tablet Take 4-8 mg by mouth. 0 03/21/2016 Active triamterene (DYRENIUM) 50 MG capsule Take 50 mg by mouth. 0 Active amitriptyline (ELAVIL) tablet 25 mg 0 03/05/2017 Act raymon atorvastatin (LIPITOR) tablet 10 mg TAKE 1 TABLET BY MOUTH AT BEDTIME 3 04/20/2017 Active clonazePAM (KLONOPIN) 0.5 MG tablet TAKE 1 TABLET DAILY AT BEDTIME 3 04/30/2017 Active digoxin (LANOXIN) 125 MCG tablet 0 03/31/2017 Active doxycycline (VIBRAMYCIN) 100 MG capsule TAKE ONE CAPSULE TWICE A DAY UNTIL FINISHED 0 04/15/2017 Active triamterene-hydrochlo rothiazide (MAXZIDE) 75-50 MG per tablet 0 05/08/2017 Activ e budesonide-formoterol (SYMBICORT) 160-4.5 MCG/ACT inhaler Inhale 2 puffs into the lungs. 0 Active dabigatran etexilate (PRADAXA) 150 MG capsu Take 150 mg by mouth. 0 Active Diclofenac Sodium 1 % GEL topical Apply 4 g topically. 0 01/27/2020 Active acetaminophen (TYLENOL) 325 MG tablet Take 650 mg by mouth every 6 (six) hours as needed. 0 11/08/2021 Active fluticasone (FLONASE) 50 MCG/ACT nasal spray spray or apply 1 spray inside Nose. 0 Active hydroCHLOROthiazide (HYDRODIURIL) tablet 25 mg Take 25 mg by mouth daily. 0 Active Active Problems Problem Noted Date Diagnosed Date Primary osteoarthritis of both knees 03/02/2019 Primary osteoarthritis of left knee 08/25/2018 Primary osteoarthritis of right knee 08/25/2018 Chronic pain of both knees 08/25/2018 Social History Tobacco Use Types Packs/Day Years Used Date Smoking Tobacco: Never Assessed Sex and Gender Information Value Date Recorded Sex Assigned at Not on file Gender Identity Not on file Sexual Orientation Not on file Job Start Date Occupation Industry Not on file Not on file Not on file Last Filed Vital Signs Vital Sign Reading Time Taken Comments Blood Pressure - - Pulse - - Temperature - - Respiratory Rate - - Oxygen Saturation - - Inhaled Oxygen Concentration - - Weight 99.8 kg (220 lb) 05/13/2017 2:16 PM EST Height 160 cm (5' 3 ) 05/13/2017 2:16 PM EST Body Mass Index 38.97 05/13/2017 2:16 PM EST Plan of Treatment Health Maintenance Due Date Last Done Comments Hepatitis C Screening 1945 COVID-19 Vaccine (#1) 1945 Depression Screening 1958 Preventative Health Evaluation 02/29/1964 DTap / Tdap / Td (1 - Tdap) 1965 Shingrix-Zoster Vaccine (1 of 2) 02/29/1996 Fall Risk Assessment 2011 Osteoporosis Screening (DEXA Scan) 2011 Pneumococcal Vaccine (1 of 1 - PCV) 2011 RSV Adult > 60+ Yrs or Pregn ant (1 - 1-dose 75+ series) 2021 Influenza Vaccine (#1) 2024 Hepatitis B Vaccines Aged Out No long er eligible based on patient's age to complete this topic RSV Ped < 20 months Aged Out No longe r eligible based on patient's age to complete this topic Care Teams Manager Technical Training Relationship Specialty Start Date End Date Dany Segal MD [address] [place] [address] PCP - General Credit Control Clerk 04/04/17
--- OUTSIDE RECORDS SUMMARY | 2024-08-31 13:55 | XMS_ITS ---
Author Name [facility] Organization Unknown History of Medication Use Medication Directions Dispensed Refills Start Date End Date Stat us prednisolone acetate 1 % eye drops,suspension INSTILL ONE DROP 4 TIMES PER DAY FOR 7 DAYS DIRECTED. 07/03/2023 active triamcinolone acetonide 40 mg/mL suspension for injection Take 40 mg by injection route. 01/08/2024 active lidocaine (PF) 10 mg/mL (1 %) injection solution Take 2 mL by injection route. 11/21/2022 07/03/2023 completed doxycycline hyclate 100 mg capsule 07/03/2023 completed Marcaine (PF) 0.5 % (5 mg/mL) injection solution Take 4 mL by injection route. 01/08/2024 active digoxin 125 mcg (0.125 mg) tablet active Refresh active Allergies Allergen Reaction Severity Comment Documented Date Source Statu s LISINOPRIL [facility] ZESTORETIC E[facility] HOUSE DUST [facility] MOLD [facility] Problems Problem Status Onset Date Problem Type Date of Resoluti on Source Osteoarthritis of left knee joint active 2022-11-21 ProblemAct [facility] Pain of bilateral knee joints active 2023-02-04 ProblemAct [facility] Effusion of joint of left knee active 2022-11-21 ProblemAct [facility] Osteoarthritis of right knee joint active 2022-11-21 ProblemAct [facility] Effusion of joint of right knee active 2022-11-21 ProblemAct [facility] Encounters Encounter Type Encounter Reason Primary Diagnosis Location Date Ambulatory [facility] 05/21/2024 Ambulatory [facility] 04/16/2024 Ambulatory [facility] 03/16/2024 Ambulatory [facility] 01/08/2024 Ambulatory [facility] 10/02/2023 Ambulatory [facility] 10/01/2023 Ambulatory [facility] 07/03/2023 Ambulatory [facility] 06/06/2023 Ambulatory [facility] 01/21/2023 Ambulatory [facility] 01/21/2023 Ambulatory [facility] 11/20/2022 Ambulatory [facility] 11/20/2022 Ambulatory [facility] 11/20/2022 Ambulatory [facility] 11/19/2022 Ambulatory [facility] 10/16/2022
== END 2024-08-31 11:48 | disposition home or self-care (01) ==
LOC: HO.HOS 11:13
PROVIDERS: Visit Provider Orthopaedic Surgery
DX: M17.0 Bilateral primary osteoarthritis of knee (principal)
CPT/HCPCS: 20610; 99213

== ENCOUNTER → 2024-08-31 11:12 | Outpatient (BNVA) | payer MEDICARE, SELFPAY | PROVIDERS: Visit Provider Orthopaedic Surgery | DX: M17.0 Bilateral primary osteoarthritis of knee (principal) | CPT/HCPCS: 20610; 99212; J1010; J2003 ==

== ENCOUNTER 2024-12-01 12:33 | Outpatient (AMB) | payer MEDICARE, SELFPAY ==
--- NOTE | 2024-12-01 12:45 | MHC.OFFVIS ---
Vital Signs 12/01/24 12:50 Height 5 ft 3 in Weight 210 lb BMI 37.2 Intake Visit Reasons: Inj-B/L knee pain, injection-last 08/31/24 Intake Note: Jazmin is a 79 year old female who presents with complaints of bilateral knee pains. She describes her pains as sharp in nature. Her pains have gotten worse over the last few months in spite of continued non operative treatments. She has tried Tylenol which gives only mild relief. She has had cortisone injections which gave her fairly good relief. She wishes to hold off on total knee replacement surgery for as long as possible. Allergies hydrochlorothiazide [From Zestoretic] Allergy (Intermediate, Verified 12/01/24 12:50) Redness of Skin lisinopril [From Zestoretic] Allergy (Intermediate, Verified 12/01/24 12:50) Redness of Skin warfarin Allergy (Verified 12/01/24 12:50) Rash Medication List - Last Reconciled 12/01/24 by Candido Sanchez MD amitriptyline 25 mg PO BEDTIME clonazepam 0.5 mg PO DAILY diclofenac sodium 1% 4 grams topical QID digoxin 125 mcg PO DAILY diltiazem HCl ER 180 mg PO DAILY fluticasone propionate 250 mcg/actuation 1 inh inhalation BID ibuprofen 200 mg PO Q6H PRN Physical Exam Vital Signs: BMI result Body Mass Index 37.2 Const Other: Well-nourished well-developed very friendly female awake alert and oriented x3 in no acute distress Extrem Other: Bilateral lower extremity examination shows good capillary refill, no skin lesions noted, normal sensation light touch Bilateral knee examination shows palpable crepitus with range of motion, pain with range of motion, range of motion from -3 degrees to 110 degrees, no instability Office Procedures AMB Joint Injection/Aspiration Joint Injection/Aspiration Primary Site: left knee Prep: site was prepped using aseptic technique Injected: 40 mg of, DepoMedrol and 1% plain lidocaine Procedure: The patient tolerated the procedure well Coding 77005 - Large joint Procedure code (CPT) selection complete AMB Joint Injection/Aspiration Joint Injection/Aspiration Primary Site: right knee Prep: site was prepped using aseptic technique Injected: 40 mg of, DepoMedrol and 1% plain lidocaine Procedure: The patient tolerated the procedure well Coding 47932 - Large joint Procedure code (CPT) selection complete Results Reviewed Results Reviewed: X-rays of the patient's bilateral knees taken previously show joint space narrowing, subchondral sclerosis, no acute bony abnormalities Assessment & Plan Assessment & Plan (1) Arthritis of left knee: Code(s): M17.12 - Unilateral primary osteoarthritis, left knee Category: Medical (2) Arthritis of right knee: Code(s): M17.11 - Unilateral primary osteoarthritis, right knee Category: Medical Plan Ms. Adari presents with bilateral knee pains due to degenerative joint disease. The risks and benefits of bilateral knee cortisone injections were discussed at length with the patient. The patient wished to proceed. She tolerated the injections well. She will continue with her home exercise program. She will contact me prior to her follow-up appointment in 3 months should any questions or concerns arise. I spent 21 minutes in reviewing the patient's records and imaging studies, seeing the patient and documenting in the medical record. Orders: Orders AMB Joint Injection/Aspiration Today M17.12 - Unilateral primary osteoarthritis, left knee AMB Joint Injection/Aspiration Today M17.11 - Unilateral primary osteoarthritis, right knee Coding Level of Care Code Est Pt Level 3 (86308) Complex EM visit Add On G2211 Diagnoses Arthritis of left knee M17.12 Arthritis of right knee M17.11 CPT Codes Coding - 74009 Large joint: 61251 - Large joint ([id number]) Coding - 56056 Large joint: 98836 - Large joint ([id number])
[2024-12-01 12:50] VITALS: BMI 37.2
--- OUTSIDE RECORDS SUMMARY | 2024-12-01 14:03 | XMS_ITS | Clinical Summary ---
Author Organization [facility] [place] [address] Care Team Providers Care Self Pay Collector Name Role Phone Dany Galloway MD Primary Care Provider [phone] Medications triamterene-hyd roCHLOROthiazid e (MAXZIDE) 75-50 mg per tablet Take 1 tablet by mouth 1 (one) time each day. 05/08/2017 Active apixaban (ELIQUIS) 5 mg tablet Take 1 tablet (5 mg total) by mouth 2 (two) times a day. 180 tablet 1 05/04/2024 Active digoxin (LANOXIN) 125 mcg (0.125 mg) tablet Take 1 tablet (125 mcg total) by mouth 1 (one) time each day. 90 tablet 1 08/02/2024 Active dilTIAZem CD (CARDIZEM CD) 180 mg 24 hr capsule Take 2 capsules (360 mg total) by mouth 1 (one) time each day. 180 capsule 1 08/02/2024 Active Family History Medical History Relation Name Comments [...] Vaccines (1 of 2) 02/29/1996 RSV Immunization Adult Patients (1 - 1-dose 75+ series) 2021 Cholesterol Screening (Lipid Panel) 05/30/2022 Depression Screening 05/30/2022 Falls Risk Assessment 05/30/2022 Hepatitis C Screening 05/30/2022 Osteoporosis Screening (Bone Density Screening) 05/30/2022 Social Influencers of Health Screening 05/30/2022 COVID-19 Vaccine ( - 2023-2 5 season) 2024 Hypertension/CHF/CAD Annual BMP Blood Test 04/28/2024 Influenza Vaccine (Season Ended) 2025 03/21/2023, 04/05/2022, 03/21/2021 HIB Vaccines Aged Out No longer eligi [...] age to complete this topic Meningococcal B Vaccine Aged Out No l onger eligible based on patient's age to complete this topic RSV Immunization Patients Under 20 months Aged Out No longer eligible b ased on patient's age to complete this topic Varicella Vaccines Aged Out No longer eligible based on patient's age to complete this topic Care Teams Self Pay Collector Relationship Specialty Start Date End Date Dany Galloway MD [address] [place] [address] PCP - General Waste Elimination 04/04/17
== END 2024-12-01 13:40 | disposition home or self-care (01) ==
LOC: HO.HOS 12:33
PROVIDERS: Visit Provider Orthopaedic Surgery
DX: M17.0 Bilateral primary osteoarthritis of knee (principal)
CPT/HCPCS: 20610; 99213

== ENCOUNTER → 2024-12-01 12:33 | Outpatient (BNVA) | payer MEDICARE, SELFPAY | PROVIDERS: Visit Provider Orthopaedic Surgery | DX: M17.0 Bilateral primary osteoarthritis of knee (principal) | CPT/HCPCS: 20610; 99212; J1010; J2003 ==

== ENCOUNTER 2025-04-21 12:21 | Outpatient (AMB) | payer MEDICARE, SELFPAY ==
--- OUTSIDE RECORDS SUMMARY | 2015-11-29 | XMS_ITS | Encounter Summary ---
Author Organization [facility] Address [address] [place] [address] Phone Care Team Providers Care Electrical Calibrator Name Role Phone Dany Segal MD Primary Care Provider Encounter Details Date Type Department Care Team (Late st Contact Info) Description 11/29/2015 Hospital Encounter [facility] [address] [place] [address] Chan Lindsey MD [address] [facility] [address] [place] [address] [email or web address] Social History Tobacco Use Types Packs/Day Years Used Date Smoking Tobacco: Never Smokeless Tobacco: Never Alcohol Use Standard Drinks/Week Comments Yes 0 (1 standard drink = 0.6 oz pur e alcohol) rare Education Answer Date Recorded Are you interested in more education? Not on catrachita e 10/18/2022 Are you concerned about learning? Not on file 10/18/2022 No 10/18/2022 No 10/18/2022 Digital Access Answer Date Recorded No 11/17/2022 No 11/17/2022 No 11/17/2022 Reliable internet access at home? Not on file 11/17/2022 Device with a working camera? Not on file Comments No Sex and Gender Information Value Date Recorded Sex Assigned at Not on file Legal Sex Female 12:08 PM EDT Gender Identity Not on file Sexual Orientation Not on file documented as of this encounter Functional Status * Calculated C-SSRS Risk Score (Lifetime/Recent) Answer Date of Assessment Author No Risk Indicated 11/07/2021 8:00 PM EDT Krystina Graham RN * [place] Suicide Severity Rating Scale (Screener/Recent Self-Report) Question Answer Date of Assessment Author 1. Wish to be (Past 1 Month) No 11/07/2021 8:00 PM EDT Krystina Graham RN 2. Non-Specific Active Suici natty Thoughts (Past 1 Month) No 11/07/2021 8:00 PM EDT Kurt Graham RN 6. Suicidal Behavior (Lifetime) No 8:00 PM EDT rKystina Graham RN documented as of this encounter Plan of Treatment Not on file documented as of this encounter Procedures Procedure Name Priority Date/Time Associated Diagnosis Comments MRI UPPER EXTREMITY OUTSIDE (NO INTERPRETATION) Routine 11/29/2015 12:00 AM EDT documented in this encounter Results * MRI Outside Upper Extremity (No Interpretation) (11/29/2015 12:00 AM EDT) Narrative [facility] - 12/05/2015 12:03 PM EDT This study is for PACS storage only and not for interpretation. Procedure Note SYSTEMGENERATED, DOCUMENTATION - 12/05/2015 This study is for PACS storage only and not for interpretation. us Chan Lindsey MD IMG OUTSIDE IMAGING W/OUT IN TERPRETATION Final Result [facility] documented in this encounter Visit Diagnoses Not on filedocumented in this encounter Care Teams Electrical Calibrator Relationship Specialty Start Date End Date Dany Segal MD [address] [place] [id number] PCP - General Internal Medicine 02/22/15 documented as of this encounter Additional Source Comments The information contained in this document represents components of the legal health record. It is not the complete legal health record.[facility]
--- NOTE | 2025-04-21 12:48 | MHC.OFFVIS ---
Vital Signs 04/21/25 12:52 Height 5 ft 3 in Weight 210 lb BMI 37.2 Intake Visit Reasons: Inj-B/L knee pain, injection-last 12/01/24 Intake Note: Jazmin is a 80 year old female who presents with complaints of bilateral knee pains. She describes her pains as sharp in nature. She has tried Tylenol and anti-inflammatory medicines as well as topical diclofenac which gave her mild relief. She has had cortisone injections in the past which gave her fairly good relief. She wishes to hold off on total knee replacement surgery for as long as possible. Allergies hydrochlorothiazide (From Zestoretic) Allergy (Intermediate, Verified 04/21/25 12:52) Redness of Skin lisinopril (From Zestoretic) Allergy (Intermediate, Verified 04/21/25 12:52) Redness of Skin warfarin Allergy (Verified 04/21/25 12:52) Rash Medication List - Last Reconciled 04/21/25 by Candido Sanchez MD amitriptyline 25 mg PO BEDTIME clonazepam 0.5 mg PO DAILY diclofenac sodium 1% 4 grams topical QID digoxin 125 mcg PO DAILY diltiazem HCl ER 180 mg PO DAILY fluticasone propionate 250 mcg/actuation 1 inh inhalation BID ibuprofen 200 mg PO Q6H PRN Physical Exam Vital Signs: BMI result Body Mass Index 37.2 Const Other: Well-nourished well-developed very friendly female awake alert and oriented x3 in no acute distress Extrem Other: Bilateral knee examination shows mild effusions, palpable crepitus with range of motion, pain with range of motion, no instability Office Procedures AMB Joint Injection/Aspiration Joint Injection/Aspiration Primary Site: left knee Prep: site was prepped using aseptic technique Injected: 40 mg of, DepoMedrol, with 4 mL of and 1% plain lidocaine Procedure: The patient tolerated the procedure well Coding 30593 - Large joint Procedure code (CPT) selection complete AMB Joint Injection/Aspiration Joint Injection/Aspiration Primary Site: right knee Prep: site was prepped using aseptic technique Injected: 40 mg of, DepoMedrol, with 4 mL of and 1% plain lidocaine Procedure: The patient tolerated the procedure well Coding 73724 - Large joint Procedure code (CPT) selection complete Results Reviewed Results Reviewed: X-rays of the patient's bilateral knees taken previously show joint space narrowing, subchondral sclerosis, no acute bony abnormalities Assessment & Plan Assessment & Plan (1) Arthritis of left knee: Code(s): M17.12 - Unilateral primary osteoarthritis, left knee Category: Medical (2) Arthritis of right knee: Code(s): M17.11 - Unilateral primary osteoarthritis, right knee Category: Medical Plan Ms. Adair presents with bilateral knee pains due to degenerative joint disease. The risks and benefits of bilateral knee cortisone injections were discussed at length with the patient. The patient wished to proceed. She tolerated the injections well. She will continue with her home exercise program. She will contact me prior to her follow-up appointment in 3 months should any questions or concerns arise. Feel free to call me at any time should questions regarding her orthopedic management arise. I spent 21 minutes in reviewing the patient's records and imaging studies, seeing the patient and documenting in the medical record. Orders: Orders AMB Joint Injection/Aspiration Today M17.12 - Unilateral primary osteoarthritis, left knee AMB Joint Injection/Aspiration Today M17.11 - Unilateral primary osteoarthritis, right knee Coding Level of Care Code Est Pt Level 3 (70461) Complex EM visit Add On G2211 Diagnoses Arthritis of left knee M17.12 Arthritis of right knee M17.11 CPT Codes Coding - 88969 Large joint: 52459 - Large joint ([id number]) Coding - 76676 Large joint: 14448 - Large joint ([id number])
[2025-04-21 12:52] VITALS: BMI 37.2
--- OUTSIDE RECORDS SUMMARY | 2025-04-21 15:12 | XMS_ITS | Clinical Summary ---
Author Organization [facility] Address [address] [place] [address] Phone Care Team Providers Care Fibreglass Gun Hand Name Role Phone Dany Segal MD Primary Care Provider Moe Sierra MD Unavailable [phone] Allergies Active Allergy Reactions Criticality Noted Date Comments Lisinopril Rash,Fever Low 10/17/2015 Warfarin 10/29/2021 Rash on legs Zestoretic (Lisinopril-Hydrochlorothiazide) Rash,Fever Low 10/17/2015 Medications digoxin (LANOXIN) 125 mcg tablet Take 125 mcg by mouth daily. Active diltiazem (CARDIZEM CD) 300 MG 24 hr capsule Take 360 mg by mouth daily. Active clonazePAM (KLONOPIN) 0.5 MG tablet Take 0.5 mg by mouth nightly as needed for anxiety. Active amitriptyline (ELAVIL) 25 MG tablet Take 25 mg by mouth nightly. Active dabigatran etexilate mesylate (PRADAXA ORAL) Take 150 mg by mouth nightly at bedtime. Active hydroCHLOROthiaz bennie (HYDRODIURIL) 25 MG tablet Take 25 mg by mouth daily. Active L.acidoph,plant/ B.animal,long (PROBIOTIC ACIDOPHILUS BEADS ORAL) Take by mouth. Act raymon fluticasone propionate (FLONASE) 50 mcg/actuation nasal spray 1 spray by Nasal route daily. Active acetaminophen (TYLENOL) 325 mg tablet Take 2 tablets (650 mg total) by mouth every 6 (six) hours as needed for mild pain or fever. 200 tablet 2 Active oxyCODONE 5 MG immediate release tablet Take 1-2 tablets (5-10 mg total) by mouth every 4 (four) hours as needed for moderate pain. Partial fill ok 40 tablet 2 Active senna (SENOKOT) 8.6 mg tablet Take 2 tablets by mouth nightly at bedtime. 30 tablet 2 Active amoxicillin (AMOXIL) 500 MG capsule Take 4 capsules (2,000 mg total) by mouth as directed. 4 500 MG CAPSULES (2,000 MG TOTAL WITHIN 1 HR OF DENTAL PROCEDURE) 8 capsule 2 3 Active diclofenac sodium (VOLTAREN) 1 % Gel Apply 4 g topically 4 (four) times a day. 100 g 1 3 Active budesonide-glyco pyr-formoterol (BREZTRI AEROSPHERE) 160-9-4.8 mcg/actuation inhaler 1 Active Active Problems Problem Noted Date Diagnosed Date Rotator cuff arthropathy of right shoulder 11/06 Hyperlipidemia 03/11/2016 Hypertension 03/11/2016 Asthma 03/11/2016 Atrial fibrillation 03/11/2016 Depression with anxiety 03/11/2016 Rotator cuff injury 03/11/2016 Social History Tobacco Use Types Packs/Day Years Used Date Smoking Tobacco: Never Smokeless Tobacco: Never Tobacco Cessation:Counseling Given: Not Answered Alcohol Use Standard Drinks/Week Comments Yes 0 [...] on file Sexual Orientation Not on file Last Filed Vital Signs Vital Sign Reading Time Taken Comments Blood Pressure 128/68 11/08/2021 9:12 AM EDT Pulse 90 11/08/2021 9:12 AM EDT Temperature 36.8 C (98.2 F) 11/22/2021 9:48 AM EDT Respiratory Rate 18 11/08/2021 8:08 AM EDT Oxygen Saturation 94% 11/08/2021 8:08 AM EDT Inhaled Oxygen Concentration - - Weight 104.3 kg (230 lb) 09/25/2022 11:25 AM EDT Height 160 cm (5' 3 ) 09/25/2022 11:25 AM EDT Body Mass Index 40.74 09/25/2022 11:25 AM EDT Plan of Treatment Health Maintenance Due Date Last Done Comments Adult Td,Tdap Booster 1945 BLOOD PRESSURE 1945 LIPID PANEL 1946 DEPRESSION SCREENING 1958 HEPATITIS C SCREENING 02/29/1964 PNEUMOCOCCAL VACCINES (50+ years) (1 of 2 - PCV) 1965 ZOSTER VACCINES (1 of 2) 02/29/1996 OSTEOPOROSIS SCREENING INITIAL (ONE-TIME) 2011 RSV VACCINE (1 - 1-dose 75+ series) 2021 CREATININE LEVEL 11/08/2022 11/08/2021, , 09/28/2021, Additional history exists POTASSIUM LEVEL 11/08/2022 11/08/2021, 10/21, 09/28/2021, Additional history exists INFLUENZA VACCINE (#1) 2025 2, 03/21/2021, 03/03/2020, Additional history exists COVID-19 VACCINE (2024- season) 2025 01/22/2022, 04/11/2021, 08/15/2020, Additional history exists SMOKING STATUS SCREENING (Once After 26 Yrs) Completed 06/26/2022 HEPATITIS A VACCINES Aged Out No long er eligible based on patient's age to complete this topic HIB VACCINES Aged Out No longer eligi ble based on patient's age to complete this topic MENINGOCOCCAL VACCINES (ACWY) Aged Out No longer eligible based on patient's age to complete this topic MENINGOCOCCAL VACCINES (B) Aged Out N o longer eligible based on patient's age to complete this topic Medical Devices Implanted Type Area Bulbs Farmworker Device Identifier Shelf Expiration Date Model / Serial / Lot Screws Description:right shoulder s jenniffer Cocolalla Suture 19.5x7mm Peek Forked Eyelet Latex-Free Swivelock - [id number] Implanted:Qty: 2 on 03/21/2016 by Chan Lindsey MD at [employer] Left: Acromial Process [employer] 01/20/2021 [id number] -[id number] / / [id number] Swivelock Double Loaded Coi-Comp 4.75mm Order In Multiples Of 5 - [id number] Implanted:Qty: 2 on 03/21/2016 by Chan Lindsey MD at [employer] Acromial Process [employer] 11/20/2017 [id number] -[id number] / / [id number] Screw Bone 34mm Perform Reverse - [id number] Implanted:Qty: 1 on 11/06/2021 by Chan Lindsey MD at [employer] Right: Shoulder [employer] [id number] / [id number] / Screw Bone 5x18mm Perform Reverse - [id number] Implanted:Qty: 2 on 11/06/2021 by Chan Lindsey MD at [employer] Right: Shoulder [employer] [id number] / [id number] / Screw Bone 5x14mm Perform Reverse - [id number] Implanted:Qty: 1 on 11/06/2021 by Chan Lindsey MD at [employer] Right: Shoulder [employer] [id number] / [id number] / Tornier Perform Humeral System Reversed Insert Size 36mm Plus Zero Implanted:Qty: 1 on 11/06/2021 by Chan Lindsey MD at [employer] Right: Shoulder 05/14/2026 / [id number] / Perform Humeral System Humeral Stem Size [id number] Implanted:Qty: 1 on 11/06/2021 by Chan Lindsey MD at [employer] Right: Shoulder 08/25/2026 / [id number] / Tornier Perform Reversed Glenoid L: 7mm Implanted:Qty: 1 on 11/06/2021 by Chan Lindsey MD at [employer] Right: Shoulder 08/01/2026 / [id number] / Glenosphere Component 36mm Perform Reverse Standard - [id number] Implanted:Qty: 1 on 11/06/2021 by Chan Lindsey MD at [employer] Right: Shoulder [employer] 08/22/2026 [id number] / [id number] / Pin Guide [id number] Humeral Perform System - [id number] Implanted:Qty: 1 on 11/06/2021 by Chan Lindsey MD at [employer] Right: Shoulder [employer] 03/21/2026 [id number] / [id number] / Description:Used but not imp lanted Baseplate Glenoid 25mm +3 Reversed Perform - [id number] Implanted:Qty: 1 on 11/06/2021 by Chan Lindsey MD at [employer] Right: Shoulder [employer] 09/28/2026 [id number] / [id number] / Procedures Procedure Name Priority Date/Time Associated Diagnosis Comments BASIC METABOLIC PANEL Routine 11/08/2021 4:30 AM EDT from Last 3 Months or Most Recently Relevant to Health Maintenance Results * (ABNORMAL) Basic metabolic panel (11/08/2021 4:30 AM EDT) SODIUM 138 135 - 145 mmol/L [facility] POTASSIUM 4.2 3.4 - 5.0 mmol/L [facility] CHLORIDE 99 98 - 108 mmol/L [facility] CO2 28 23 - 32 mmol/L [facility] BUN 20 8 - 25 mg/dL [facility] CREATININE 0.85 0.60 - 1.50 mg/dL [facility] GLUCOSE 126(H) 70 - 110 mg/dL [facility] CALCIUM 9.3 8.5 - 10.5 mg/dL [facility] EGFR 71 >59 mL/min/1. 73m2 [facility] Comment:Estimated glomerular filtration rate calculated using the CKD-EPI refit equation. ANION GAP 11 3 - 17 mmol/L [facility] Blood 11/08/2021 4:30 AM EDT 11/08/2021 6:02 AM EDT Moe Jerry MD LAB BLOOD ORDERABLES F inal Result [facility] [address] [place] [address] from Last 3 Months or Most Recently Relevant to Health Maintenance Insurance MEDICARE PART A & B MEDICARE HMO REPLACEMENT MEDICARE PART A & B [place] MEDICARE HMO REPLACEMENT MEDICARE PART A & B MEDICARE PART A & B MEDICARE PART A & B Member Subscriber Plan / Payer (Ef fective 2011-Present) Name:Jazmin Adair Member ID:[id number] Relation to Subscriber:Self Name:KuldippatriciaJazmin JacksonJaxson Subscriber ID:[id number] Payer ID:[id number] Group ID:Not on file Type:Medicare Address: [address] MEDICARE HMO REPLACEMENT MEDICARE PART A & B Member Subscriber Plan / Payer (Ef fective 2011-Present) Name:Jazmin Adair Member ID:[id number] Relation to Subscriber:Self Name:Jazmin Adair Subscriber ID:[id number] Payer ID:[id number] Group ID:Not on file Type:Medicare Address: [address] MEDICARE HMO REPLACEMENT MEDICARE PART A & B MEDICARE PART A & B MEDICARE HMO REPLACEMENT MEDICARE PART A & B [facility] MEDICARE HMO REPLACEMENT Advance Directives For more information, please contact: [phone] (9AM - 5PM [facility], Friday-Friday) Documents on File Type Date Recorded Patient Industrial Waste Treatment Technician Expl anation Healthcare Proxy 03/12/2016 8:32 AM [facility] Care Proxy- 05/23/12 Care Teams Fibreglass Gun Hand Relationship Specialty Start Date End Date Dany Segal MD [address] [facility] [address] [place] [address] PCP - General Internal Medicine 02/22/15 Moe Sierra MD [address] [facility] [address] [place] [address] Cardiology 10/29/21 Additional Source Comments The information contained in this document represents components of the legal health record. It is not the complete legal health record.[facility]
--- OUTSIDE RECORDS SUMMARY | 2025-04-21 15:13 | XMS_ITS | Data Portability ---
Author Organization [place] [facility] [place] Address [address] [place] [address] Care Team Providers Care Paint Prep Technician Name Role Phone ALAN ZARAGOZA Primary Care [...] findings at length with the patient today. We discussed the nature and etiology of this problem along with current treatment options. We discussed the expected course and outcomes and what to expect. We also discussed risks and benefits. All of their questions were answered today, and there was exhibited understanding and comprehension of all that was discussed. Time Spent: 10 minutes were spent reviewing previous imaging and charting. 15 minutes were spent obtaining patient history. 5 minutes were spent on physical exam. 15minutes were spent explaining diagnosis and assessment. Today's [...] findings at length with the patient today. We discussed the nature and etiology of this problem along with current treatment options. We discussed the expected course and outcomes and what to expect. We also discussed risks and benefits. All of their questions were answered today, and there was exhibited understanding and comprehension of all that was discussed. Time Spent: 10 minutes were spent reviewing previous imaging and charting. 15 minutes were spent obtaining patient history. 5 minutes were spent on physical exam. 15minutes were spent explaining diagnosis and assessment. Today's [...] findings at length with the patient today. We discussed the nature and etiology of this problem along with current treatment options. We discussed the expected course and outcomes and what to expect. We also discussed risks and benefits. All of their questions were answered today, and there was exhibited understanding and comprehension of all that was discussed. Time Spent: 10 minutes were spent reviewing previous imaging and charting. 10 minutes were spent obtaining patient history. 5 minutes were spent on physical exam. 5minutes were spent explaining diagnosis and assessment. Today's [...] findings at length with the patient today. We discussed the nature and etiology of this problem along with current treatment options. We discussed the expected course and outcomes and what to expect. We also discussed risks and benefits. All of their questions were answered today, and there was exhibited understanding and comprehension of all that was discussed. Time Spent: 10 minutes were spent reviewing previous imaging and charting. 10 minutes were spent obtaining patient history. 5 minutes were spent on physical exam. 5minutes were spent explaining diagnosis and assessment. Today's documentation was made using voice recognition software. This note may contain grammatical errors secondary to the software. Not available 10/01/2023 07:41:11 01/08/2024 01/08/2024 78-year-old fema le with bilateral knee pain. History, examination and x-rays are consistent with advanced [id number] osteoarthritis. After discussion regarding treatment options she wishes to proceed with cortisone injections. See the attached procedure note. Follow-up if she fails to get relief with cortisone or when the cortisone effects wane. This patient was seen and evaluated by Jose Doran MS, PA-C in indirect conjunction with documenting/superv ising provider Asaf Mccray MD. He agrees with history, physical examination, tests/diagnostic imaging, and treatment plan. This document was generated using voice recognition software. As a result, there may be unintended spelling, grammatical and/or textual errors. [email or web address] Not available 01/08/2024 11:49:17 Plan of Treatment Reminders Order Date Submit Date Provider Last Modified By Organization Details Last Modified Time Details Appointments None recorded. Lab None recorded. Referral None recorded. Procedures None recorded. Surgeries None recorded. Imaging XR, knee, 1 or 2 view - Left Knee Pain 2022 023 [email or web address] 2 [facility], [address], [address], [place], [address], 3 13:44:00 XR, knee, 1 or 2 view - Right Knee Pain 2022 023 [email or web address] 2 [facility], [address], [place], [address], 3 13:44:00 XR, knee, weightbeari ng - Bilateral Knee Pain 2022 023 [email or web address] 2 [facility], [address], [place], [address], 3 13:43:59 Medication Orders Marcaine (PF) 0.5 % (5 mg/mL) injection solution [address] [facility], [address] [place] [address], [address], 4 12:12:43 lidocaine (PF) 100 mg/5 mL (2 %) injection syringe [address] [facility], [address] [place] [address], [address], 4 12:12:43 triamcinolo ne acetonide 40 mg/mL suspension for injection [address] [facility], [address] [place] [address], [address], 4 12:12:43 Marcaine (PF) 0.5 % (5 mg/mL) injection solution [address] [facility], [address] [place] [address], [address], 4 12:12:43 lidocaine (PF) 100 mg/5 mL (2 %) injection syringe [address] [facility], [address] [place] [address], [address], 4 12:12:43 triamcinolo ne acetonide 40 mg/mL suspension for injection [address] [facility], [address] [place] [address], [address], 4 12:12:43 Kenalog 40 mg/mL suspension for injection [email or web address] [facility] [address] [facility], [address] [place] [address], [address], 4 12:54:13 lidocaine (PF) 100 mg/5 mL (2 %) injection syringe 2023 024 [email or web address], [address] [place] [address], [address], 4 12:54:13 Kenalog 40 mg/mL suspension for injection 2023 024 [email or web address] [facility], [address] [place] [address], [address], 4 12:54:13 lidocaine (PF) 100 mg/5 mL (2 %) injection syringe 2023 024 [email or web address] [facility], [address] [place] [address], [address], 4 12:54:13 Kenalog 40 mg/mL suspension for injection 2023 024 [email or web address] [facility], [address] [place] [address], [address], 4 07:37:38 lidocaine (PF) 100 mg/5 mL (2 %) injection syringe 2023 024 [email or web address] [facility], [address] [place] [address], [address], 4 07:37:38 Kenalog 40 mg/mL suspension for injection 2023 024 [email or web address] [facility], [address] [place] [address], [address], 4 07:37:38 lidocaine (PF) 100 mg/5 mL (2 %) injection syringe 2023 024 [email or web address] [facility], [address] [place] [address], [address], 4 07:37:38 Kenalog 40 mg/mL suspension for injection 2022 023 [email or web address] [facility], [address] [place] [address], [address], 4 13:44:41 lidocaine (PF) 10 mg/mL (1 %) injection solution [address] [facility], [address] [place] [address], [address], 4 13:44:44 Kenalog 40 mg/mL suspension for injection [address] [facility], [address] [place] [address], [address], 4 13:44:41 lidocaine (PF) 10 mg/mL (1 %) injection solution [address] [facility], [address] [place] [address], [address], 4 13:44:44 Kenalog 40 mg/mL suspension for injection [address] [facility], [address] [place] [address], [address], 4 13:44:41 lidocaine (PF) 10 mg/mL (1 %) injection solution [address] [facility], [address] [place] [address], [address], 4 13:44:44 Kenalog 40 mg/mL suspension for injection [address] [facility], [address] [place] [address], [address], 4 13:44:41 lidocaine (PF) 10 mg/mL (1 %) injection solution [address] [facility], [address] [place] [address], [address], 4 13:44:44 Patient TargetsNo targets recorded. Patient InstructionsNo instructions recorded. Reason for Referral None Reported. Problems Name Problem SNOMED Code Status Onset Date Resolution Date Notes Provider Name and Address Organization Details Recorded Time Pain of knee region 5928181846 Active 2018 Chronic pain of both knees Not Available [facility] 5 00:15:18 Primary gonarthro sis, bilateral 408500125 Active 2018 Primary osteoarth ritis of both knees Not Available [facility] 5 00:15:19 Effusion of joint of right knee 65272769013 9104 Active 2022 JOSE CAT PA-C [address], [place], [place], [address] , [place] [facility] 3 07:44:58 Osteoarth ritis of right knee joint 62623655252 9100 Active 2022 JOSE CAT PA-C [address], [place], [place], [address] , [place] [facility] 3 07:45:04 Effusion of joint of left knee 43704604953 9105 Active 2022 JOSE CAT PA-C [address], [place], [place], [address] , [place] [facility] 3 07:45:09 Osteoarth ritis of left knee joint 73098085210 9109 Active 2022 JOSE CAT PA-C [address], [place], [place], [address] , [place] [facility] 3 07:45:14 Pain of bilateral knee joints 18703857032 4104 Active 2022 JOSE CAT PA-C [address], [place], [address] , [place] [facility] 3 13:27:41 Problem Notes None recorded. Procedures Surgical History Date Name Laterality Status Provider Name and Address Organization Details Recorded Time 4 MJG Knee injection w/US completed JOSE DORAN PA-C [address], [place], [address], [place] [facility] 01/08/2024 11:49:11 4 Knee Joint/Bursa Asp & Inj completed JOSE CAT PA-C [address], [place], [address], [place] [facility] 10/01/2023 07:40:10 4 Knee Joint/Bursa Asp & Inj completed JOSE CAT PA-C [address], [place], [address], [place] [facility] 07/03/2023 13:21:46 3 Knee Joint/Bursa Asp & Inj completed JOSE CAT PA-C [address], [place], [address], [place] [facility] 02/04/2023 13:27:36 3 Knee Joint/Bursa Asp & Inj completed JOSE CAT PA-C [address], [place], [address], [place] [facility] 11/21/2022 07:43:08 procedure on shoulder completed Britta Acevedo [facility] 11/20/2022 13:11:05 Imaging Results None recorded. Procedure Notes None recorded. Medical Equipment None Reported. Allergies Allergen ID Allergen Name Allergen Category Reaction Reaction Severity Criticality Documentation Date Start Date Code Code System Note Provider Name and Address Organization Details Recorded Time 268074 warfarin medicatio n Not available Not available Not available 03/15/20252018 26832 RxNorm Not Available [facility] 5 01:31:44 265439 hydrochlo rothiazid e medicatio n Not available Not available Not available 03/15/20252021 5487 RxNorm Not Available [facility] 5 01:31:44 78871 house dust allergeni c extract environme nt,medica tion Not available Not available Not available 10/01/2023 85879 9 RxNorm Britta Acevedo [facility], [facility] 4 10:42:22 34284 mold extract environme nt Not available Not available Not available 10/01/2023 84011 8 RxNorm Britta potter, [place] - [facility] 4 10:42:26 4647 lisinopri l medicatio n Not available Not available Not available 11/20/2022 52083 RxNorm Britta Acevedo null, [place] [facility] 3 13:09:48 4648 hydrochlo rothiazid e / lisinopri l medicatio n Not available Not available Not available 11/20/2022 34313 8 RxNorm Britta Acevedo null, [place] [facility] 3 13:09:56 Medications Name Sig Start Date Stop Date Status Note LastModified by Organization Details LastModified Time amoxicillin 500 mg capsule active Not Available Not Available Not Available latanoprost 0.005 % eye drops 07/03 completed Not Available Not Available Not Available fluticasone 250 mcg-salmete rol 50 mcg/dose blistr powdr for inhalation active Not Available Not Available N ot Available acetaminoph en 325 mg tablet Take 650 mg by mouth every 6 (six) hours as needed. 2021 active Not Available Not Available Not Avai lable doxycycline hyclate 100 mg capsule TAKE 1 CAPSULE BY MOUTH TWICE A DAY active Not Available Not Available No t Available atorvastati n 10 mg tablet Take 10 mg by mouth. active Not Available Not Available No t Available diltiazem CD 180 mg capsule,ext ended release 24 hr TAKE 2 CAPSULES BY MOUTH EVERY DAY active Not Available Not Available No t Available hydrocodone 5 mg-acetamin ophen 325 mg tablet Take 1-2 tablets by mouth. 2015 active Not Available Not Available Not Avai lable ondansetron HCl 4 mg tablet Take 4-8 mg by mouth. 2015 active Not Available Not Available Not Avai lable clonazepam 0.5 mg tablet Take 0.5 mg by mouth. active Not Available Not Available No t Available diltiazem ER 300 mg capsule,24 hr,extended release Take 300 mg by mouth. active Not Available Not Available No t Available triamcinolo ne acetonide 0.1 % topical cream 07/03 completed Not Available Not Available Not Available ketorolac 0.5 % eye drops 09/30 completed Not Available Not Available Not Available hydrocortis one 2.5 % topical cream with perineal applicator APPLY RECTALLY TWICE A DAY 07/03 completed Not Available Not Available Not Available amitriptyli ne 25 mg tablet Take 25 mg by mouth. active Not Available Not Available No t Available prednisolon e acetate 1 % eye [...] Not Available Not Available Not Avai lable methylpredn isolone acetate 40 mg/mL suspension for injection 07/31 completed Not Available Not Available Not Available nystatin 100,000 unit/gram topical cream 09/30 completed Not Available Not Available Not Available warfarin 5 mg tablet TAKE 1 TABLET EVERY DAY 05/26 completed Not Available Not Available Not Available triamterene 50 mg capsule Take 50 mg by mouth. active Not Available Not Available No t Available docusate sodium 100 mg capsule Take 100 mg by mouth. 2015 active Not Available Not Available Not Avai lable hydrochloro thiazide 25 mg tablet Take 25 mg by mouth daily. active Not Available Not Available No t Available digoxin 125 mcg (0.125 mg) tablet Take 125 mcg by mouth. active Not Available Not Available No t Available triamterene 75 mg-hydrochl orothiazide 50 mg tablet Take 0.5 tablets every day by oral route. 07/03 completed Not Available Not Available Not Available methylpredn isolone 4 mg tablets in a dose pack TAKE DIRECTED ON PACKAGING FOR 6 DAYS 09/30 completed Not Available Not Available Not Available albuterol sulfate HFA 90 mcg/actuati on aerosol inhaler Inhale 2 puffs into the lungs. active Not Available Not Available No t Available fluticasone propionate 50 mcg/actuati on nasal spray,suspe nsion spray or apply 1 spray inside Nose. active Not Available Not Available No t Available Marcaine (PF) 0.5 % (5 mg/mL) injection solution Take 4 mL by injection route. 2023 active Not Available Not Available Not Avai lable Refresh active Not Available Not Avail able Not Available lidocaine (PF) 10 mg/mL (1 %) injection solution Take 2 mL by injection route. 07/03 completed Not Available Not Available Not Available diclofenac 1 % topical gel Apply 4 g topically . active Not Available Not Available No t Available hylan g-f 20 48 mg/6 mL intra-artic ular syringe 11/29 completed Not Available Not Available Not Available dabigatran etexilate 150 mg capsule Take 150 mg by mouth. active Not Available Not Available No t Available lidocaine (PF) 100 mg/5 mL (2 %) injection syringe Take 4 mL by injection route. 2023 active Not Available Not Available Not Aveitan roche Vitals Date Recorded Body height Provider Name an d Address Organization Details Last Updated DateTime 07/03/2023 160.02 cm [facility] 07/03/2023 13:44:01 Date Recorded Body weight Body mass index (BMI) Body height Provider Name and Address Organization Details Last Updated DateTime 11/20/2022 43346.47 g 35.4 kg/m2 160.02 cm Britta Acevedo [facility], [facility] 11/20/2022 13:10:30 Date Recorded Body height Provider Name an d Address Organization Details Last Updated DateTime 02/04/2023 160.02 cm [facility], [facility] 02/04/2023 13:14:35 Social History None recorded. Functional Status Question Answer Note LastModified by Organizat ion Details LastModified Time How many times per week do you consume alcohol? 1-2 times per week Information not available 11/20/2022 Do you use any illicit or recreational drugs? No Information not available 11/20/2022 What is your level of alcohol consumption? Occasional Information not available 11/20/2022 Mental Status None recorded. Family History Relationship [...] Diagnosis SNOMED-CT Code Diagnosis ICD10 Code Diagnosis IMO Codes Diagnosis Note [id number] JESSICA GARCÍA [facility] [address] [address] 11/20/2022 12:55:18 11/20/2022 13:43:59 Pain of bilateral knee joints 2288075554 27697 M25.562 M25.561 Effusion o f joint of right knee 5693553141 23893 M25.461 Osteoarthr itis of right knee joint 2611001666 59569 M17.11 Effusion o f joint of left knee 0126316634 34415 M25.462 Osteoarthr itis of left knee joint 7651389913 57874 M17.12 Noncomplia nce with medication regimen 308547355 Z91.148 [id number] JESSICA GARCÍA [facility] [address] [address] 02/04/2023 12:47:34 02/04/2023 13:27:50 Pain of bilateral knee joints 2094869457 85441 M25.562 M25.561 Effusion o f joint of right knee 0419731533 00880 M25.461 Osteoarthr itis of right knee joint 5155228146 79596 M17.11 Effusion o f joint of left knee 3964609025 99358 M25.462 Osteoarthr itis of left knee joint 2287377138 62060 M17.12 Noncomplia nce with medication regimen 596237556 Z91.148 [id number] JESSICA GARCÍA [facility] 299 [facility] [address] [place] [address] 07/03/2023 13:18:33 07/03/2023 14:06:16 Pain of bilateral knee joints 5386610597 23169 M25.562 M25.561 Effusion o f joint of right knee 5733249106 44018 M25.461 Osteoarthr itis of right knee joint 6361891178 12260 M17.11 Effusion o f joint of left knee 6664478280 65359 M25.462 Osteoarthr itis of left knee joint 1984033400 35703 M17.12 [id number] [facility] 299 [facility] [address] [place] [address] 10/01/2023 10:19:09 10/01/2023 10:56:41 Effusion of joint of right knee 5797198238 03509 M25.461 Osteoarthr itis of right knee joint 5011864274 31070 M17.11 Effusion o f joint of left knee 9097744737 43390 M25.462 Osteoarthr itis of left knee joint 4147465121 11471 M17.12 [id number] [facility] [address] [address] 01/08/2024 11:17:11 01/08/2024 12:22:59 Osteoarthritis of left knee joint 4014479944 23103 M17.12 Osteoarthr itis of right knee joint 3222651857 13838 M17.11 Health Concerns Section Related Observation LastModified by Organization Detai ls LastModified Time None Recorded Concern Status LastModified by Organization Details LastModified Time None Recorded Advance Directives Directive None Recorded Payers None recorded. Notes Date Note Type Note Provider Name [...] acute bony abnormality. JOSE CAT PA-C 299 [facility],[address], [place], [address], [place] [facility] 11/21/2022 07:48:27 02/04/2023 text/html This is [...] knee replacement surgery. JOSE CAT PA-C 299 [facility],[address] [facility], [place], [address], [facility] - [facility] 02/04/2023 13:30:37 07/03/2023 text/html This is [...] knee replacement surgery. JOSE CAT PA-C [address] [facility],[address] [facility], [place], [address], [place] [facility] 07/04/2023 07:57:47 10/01/2023 text/html This is a 78-year-old female last seen last seen on 07/03/2023 for which she had aspiration of both knees followed by cortisone injection. She states return of her bilateral knee symptoms. Return pain medial nature that is worse with walking. She states she is not interested in knee replacement surgery. JOSE CAT PA-C [address] [facility],[address], [place], [address], [facility] - [facility] 10/01/2023 12:55:36 01/08/2024 text/html 78-year-old female presents with bilateral knee pain. She specifically [...] location of her symptoms. JOSE DORAN PA-C [address] [place] [address], [place], [address], [place] [facility] 01/08/2024 12:06:49 OBGyn Episode No OBEpisode recorded.
--- OUTSIDE RECORDS SUMMARY | 2025-04-21 15:13 | XMS_ITS | Encounter Summary ---
Author Organization Located Within [facility] Address [address] [place] [address] Phone Care Team Providers Care Game Design Instructor Name Role Phone Dany Segal MD Primary Care Provider Moe Sierra MD Unavailable [phone] Encounter Details Date Type Department Care Team (Late st Contact Info) Description 11/06/2021 Procedure Pass [facility] [place] [facility] [address] [place] [address] Social History Tobacco Use Types Packs/Day Years Used Date Smoking Tobacco: Never Smokeless Tobacco: Never Alcohol Use Standard Drinks/Week Comments Yes 0 (1 standard drink = 0.6 oz pur e alcohol) rare Comments No Sex and Gender Information Value Date Recorded Sex Assigned at Not on file Legal Sex Female 12:08 PM EDT Gender Identity Not on file Sexual Orientation Not on file documented as of this encounter Functional Status * Calculated C-SSRS Risk Score (Lifetime/Recent) Answer Date of Assessment Author No Risk Indicated 11/07/2021 8:00 PM EDT Krystina Graham RN * [place] Suicide Severity Rating Scale (Screener/Recent Self-Report) Question Answer Date of Assessment Author 1. Wish to be (Past 1 Month) No 11/07/2021 8:00 PM EDT Krystina Graham RN 2. Non-Specific Active Suici natty Thoughts (Past 1 Month) No 11/07/2021 8:00 PM EDT Kurt Graham RN 6. Suicidal Behavior (Lifetime) No 8:00 PM EDT Krystina Graham RN documented as of this encounter Plan of Treatment Not on file documented as of this encounter Visit Diagnoses Not on filedocumented in this encounter Care Teams Game Design Instructor Relationship Specialty Start Date End Date Dany Segal MD [address] [place] [address] [address] [place] [address] PCP - General Internal Medicine 02/22/15 Moe Sierra MD [address] [facility] [address] [place] [address] Cardiology 10/29/21 documented as of this encounter Additional Source Comments The information contained in this document represents components of the legal health record. It is not the complete legal health record.Located Within [facility]
--- OUTSIDE RECORDS SUMMARY | 2025-04-21 15:13 | XMS_ITS | Encounter Summary ---
Author Organization [facility] Address [address] [place] [address] Phone Care Team Providers Care Sugar Controller Name Role Phone Dany Segal MD Primary Care Provider Moe Sierra MD Unavailable [phone] Encounter Details Date Type Department Care Team (Late st Contact Info) Description 08/27/2021 [facility] [address] [place] [id number] Social History Tobacco Use Types Packs/Day Years Used Date Smoking Tobacco: Never Smokeless Tobacco: Never Alcohol Use Standard Drinks/Week Comments Yes 0 (1 standard drink = 0.6 oz pur e alcohol) rare Comments Unknown Sex and Gender Information Value Date Recorded Sex Assigned at Not on file Legal Sex Female 12:08 PM EDT Gender Identity Not on file Sexual Orientation Not on file documented as of this encounter Plan of Treatment Not on file documented as of this encounter Visit Diagnoses Not on filedocumented in this encounter Care Teams Sugar Controller Relationship Specialty Start Date End Date Dany Segal MD [address] [facility] [address] [place] [address] PCP - General Internal Medicine 02/22/15 Moe Sierra MD [address] [facility] [address] [place] [address] Cardiology 10/29/21 documented as of this encounter Additional Source Comments The information contained in this document represents components of the legal health record. It is not the complete legal health record.[facility]
--- OUTSIDE RECORDS SUMMARY | 2025-04-21 15:13 | XMS_ITS ---
Author Name [facility] Organization Unknown History of Medication Use Medication Directions Dispensed Refills Start Date End Date Stat Marcaine (PF) 0.5 % (5 mg/mL) injection solution Take 4 mL by injection route. 01/08/2024 active triamcinolone acetonide 40 mg/mL suspension for injection Take 40 mg by injection route. 01/08/2024 active lidocaine (PF) 100 mg/5 mL (2 %) injection syringe Take 4 mL by injection route. 07/03/2023 4 active Kenalog 40 mg/mL suspension for injection Take 40 mg by injection route. 11/21/2022 4 active lidocaine (PF) 10 mg/mL (1 %) injection solution Take 2 mL by injection route. 11/21/2022 4 completed ketorolac 0.5 % eye drops 4 completed methylprednisolone 4 mg tablets in a dose pack 09/30 4 active nystatin 100,000 unit/gram topical cream 09/21 4 active amoxicillin 500 mg capsule 4 active doxycycline hyclate 100 mg capsule 4 completed hydrocortisone 2.5 % topical cream with perineal applicator APPLY RECTALLY TWICE A DAY 4 active latanoprost 0.005 % eye drops 4 completed prednisolone acetate 1 % eye drops,suspension INSTILL ONE DROP 4 TIMES PER DAY FOR 7 DAYS DIRECTED. 4 active triamcinolone acetonide 0.025 % topical cream 4 completed triamcinolone acetonide 0.1 % topical cream 07/03/19 2 4 completed triamterene 75 mg-hydrochlorothiazide 50 mg tablet Take 0.5 tablets every day by oral route. 4 completed amitriptyline 25 mg tablet active clonazepam 0.5 mg tablet active diclofenac 1 % topical gel active digoxin 125 mcg (0.125 mg) tablet active diltiazem CD 180 mg capsule,extended release 24 hr TAKE 2 CAPSULES BY MOUTH EVERY DAY active fluticasone 250 mcg-salmeterol 50 mcg/dose blistr powdr for inhalation active Refresh active Allergies Allergen Reaction Severity Comment Documented Date Source Statu s HOUSE DUST [facility] LISINOPRIL [facility] MOLD [facility] ZESTORETIC [facility] Problems Problem Status Onset Date Problem Type Date of Resoluti on Source Pain of bilateral knee joints active 2023-02-04 ProblemAct [facility] Effusion of joint of right knee active 2022-11-21 ProblemAct [facility] Osteoarthritis of left knee joint active 2022-11-21 ProblemAct [facility] Effusion of joint of left knee active 2022-11-21 ProblemAct [facility] Osteoarthritis of right knee joint active 2022-11-21 ProblemAct [facility] Encounters Encounter Type Encounter Reason Primary Diagnosis Location Date Ambulatory [facility] 05/21/2024 Ambulatory [facility] 04/16/2024 Ambulatory [facility] 03/16/2024 Ambulatory [facility] 01/08/2024 Ambulatory [facility] 10/02/2023 Ambulatory [facility] 10/01/2023 Ambulatory [facility] [place] 07/03/2023 Ambulatory [facility] 06/06/2023 Ambulatory [facility] 01/21/2023 Ambulatory [facility] [place] 01/21/2023 Ambulatory [facility] 11/20/2022 Ambulatory [facility] [place] 11/20/2022 Ambulatory [facility] [place] 11/20/2022 Ambulatory [facility] 11/19/2022 Ambulatory [facility] 10/16/2022 Care Team Organization Name Specialty Phone Email Start Date End Da ramoan [facility] ALAN ZARAGOZA Primary Care 05/23/202202/08
--- OUTSIDE RECORDS SUMMARY | 2025-04-21 15:13 | XMS_ITS | Encounter Summary ---
Author Organization [facility] Address [address] [place] [address] Phone Care Team Providers Care Well Digger Name Role Phone Dany Segal MD Primary Care Provider Moe Sierra MD Unavailable [phone] Encounter Details Date Type Department Care Team (Late st Contact Info) Description 08/27/[address] - [address], [address] [place] [id number] Social History Tobacco Use Types Packs/Day Years [...] on filedocumented in this encounter Care Teams Well Digger Relationship Specialty Start Date End Date Dany Segal MD [address] [place] [address] [address] [place] [address] PCP - General Internal Medicine 02/22/15 Moe Sierra MD [facility] [address] [address] Cardiology 10/29/21 documented as of this encounter Additional Source Comments The information contained in this document represents components of the legal health record. It is not the complete legal health record.[facility]
--- OUTSIDE RECORDS SUMMARY | 2025-04-21 15:13 | XMS_ITS | Clinical Summary ---
Author Organization [facility] Address [address] [place] [id number] Care Team Providers Care Operations Trainer Name Role Phone Dany Segal MD Primary Care Provider [phone] Allergies Active Allergy Reactions Criticality Noted Date [...] 1-dose 75+ series) 2021 Influenza Vaccine (#1) 2025 Hepatitis B Vaccines Aged Out No long er eligible based on patient's age to complete this topic RSV Ped < 20 months Aged Out No longe r eligible based on patient's age to complete this topic Care Teams Operations Trainer Relationship Specialty Start Date End Date Dany Segal MD [address] [place] [id number] PCP - General Suction Plate Roller Hand 04/04/17
== END 2025-04-21 13:23 | disposition home or self-care (01) ==
LOC: HO.HOS 12:22
PROVIDERS: Visit Provider Orthopaedic Surgery
DX: M17.0 Bilateral primary osteoarthritis of knee (principal)
CPT/HCPCS: 20610

== ENCOUNTER → 2025-04-21 12:21 | Outpatient (BNVA) | payer MEDICARE, SELFPAY | PROVIDERS: Visit Provider Orthopaedic Surgery | DX: M17.0 Bilateral primary osteoarthritis of knee (principal) | CPT/HCPCS: 20610; J1010; J2003 ==